=== PATIENT | female | born 1970 | race Hispanic/Latino ===

== ENCOUNTER 2018-07-20 17:34 | Emergency (ER) | payer BC ==
--- OUTSIDE RECORDS SUMMARY | 2018-07-20 17:36 | XMS REPORT | Continuity of Care Document ---
:1970 Author Organization Interface Problems Problem Status Onset Date Classification Date Comments Source Reported Medications Medication Details Route Status Patient Ordering Order Source Instructions Provider Date Allergies, Adverse Reactions, Alerts Substance Category Reaction Severity Reaction Status Date Comments Source type Reported Immunizations Immunization Date Given Site Status Last Updated Comments Source Results Order Results Value Reference Date Interpretation Comments Source Name Range Vital Signs Vital Sign Value Date Comments Source Encounters Location Location Encounter Encounter Reason Attending ADM DC Status Source Details Type Number For Provider Date Date Visit MNA Phone [id number] 12/08 12/10 [facility] [place] [facility] [place]2017 [facility] [id number] [place] 12/27 [facility] [place] [facility] Outpatient [id number] [place] 12/27 12/28 [facility] [place] [facility] [place] /2017 [facility] MNA Phone [id number] 12/31 01/02 [facility] [place] [facility] [place]2017 [facility] MNA Phone [id number] 01/03 01/05 [facility] [place] [facility] [place] /2017 [facility] Procedures Procedure Code Date Perfomer Comments Source
[2018-07-20] MEDS ORDERED: DIAZEPAM 5 MG TABLET ONE (18:26)
[2018-07-20] MEDS ORDERED: FENTANYL CITR 100 MCG/2 ML ONE (18:26)
--- NOTE | 2018-07-20 18:43 | EDPHYS ---
Physician Documentation [facility] Name: Denis Petit Age: 48 yrs Sex: Female : 1970 Arrival Date: 07/20/2018 Time: 17:35 Bed 13 Private MD: Reg Fernández ED Physician Yoni Vazquez HPI: 07/20 18:11 This 48 yrs old Female presents to ER via Ambulatory with complaints of Fall snw Injury. 18:11 Details of fall: The patient fell from an upright position, while standing. Onset: The snw symptoms/episode began/occurred suddenly, just prior to arrival. Associated injuries: The patient sustained left ankle, decreased range of motion, deformity, obvious fracture, painful injury, swelling. Severity of symptoms: At their worst the symptoms were severe. The patient has not experienced similar symptoms in the past. It is unknown whether or not the patient has recently seen a physician. 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 - Social history:: Smoking status: Patient uses tobacco products, smokes one-half pack cigarettes per day, Patient uses alcohol, occasionally. - Immunization history: Last tetanus immunization: unknown. - Ebola Screening: : Patient negative for fever greater than or equal to 101.5 degrees Fahrenheit, and additional compatible Ebola Virus Disease symptoms Patient denies exposure to infectious person Patient denies travel to an Ebola-affected area in the 21 days before illness onset. ROS: 18:10 Constitutional: Negative for fever, chills, and weight loss, Eyes: Negative for injury, snw pain, redness, and discharge, ENT: Negative for injury, pain, and discharge, Neck: Negative for injury, pain, and swelling, Cardiovascular: Negative for chest pain, palpitations, and edema, Respiratory: Negative for shortness of breath, cough, wheezing, and pleuritic chest pain, Abdomen/GI: Negative for abdominal pain, nausea, vomiting, diarrhea, and constipation, Back: Negative for injury and pain, : Negative for injury, bleeding, discharge, and swelling, Skin: Negative for injury, rash, and discoloration, Neuro: Negative for headache, weakness, numbness, tingling, and seizure, Psych: Negative for depression, anxiety, suicide ideation, homicidal ideation, and hallucinations, Allergy/Immunology: Negative for hives, rash, and allergies, Endocrine: Negative for neck swelling, polydipsia, polyuria, polyphagia, and marked weight changes. 18:10 MS/extremity: Positive for injury or acute deformity, decreased range of motion, deformity, pain, of the left ankle. Exam: 18:08 Constitutional: This is a well developed, well nourished patient who is awake, alert, snw and in no acute distress. Head/Face: Normocephalic, atraumatic. Eyes: Pupils equal round and reactive to light, extra-ocular motions intact. Lids and lashes normal. Conjunctiva and sclera are non-icteric and not injected. Cornea within normal limits. Periorbital areas with no swelling, redness, or edema. ENT: Nares patent. No nasal discharge, no septal abnormalities noted. Tympanic membranes are normal and external auditory canals are clear. Oropharynx with no redness, swelling, or masses, exudates, or evidence of obstruction, uvula midline. Mucous membranes moist. Neck: Trachea midline, no thyromegaly or masses palpated, and no cervical lymphadenopathy. Supple, full range of motion without nuchal rigidity, or vertebral point tenderness. No Meningismus. Chest/axilla: Normal chest wall appearance and motion. Nontender with no deformity. No lesions are appreciated. Cardiovascular: Regular rate and rhythm with a normal S1 and S2. No gallops, murmurs, or rubs. Normal PMI, no JVD. No pulse deficits. Respiratory: Lungs have equal breath sounds bilaterally, clear to auscultation and percussion. No rales, rhonchi or wheezes noted. No increased work of breathing, no retractions or nasal flaring. Abdomen/GI: Soft, non-tender, with normal bowel sounds. No distension or tympany. No guarding or rebound. No evidence of tenderness throughout. Back: No spinal tenderness. No costovertebral tenderness. Full range of motion. Skin: Warm, dry with normal turgor. Normal color with no rashes, no lesions, and no evidence of cellulitis. Neuro: Awake and alert, GCS 15, oriented to person, place, time, and situation. Cranial nerves II-XII grossly intact. Motor strength 5/5 in all extremities. Sensory grossly intact. Cerebellar exam normal. Normal gait. Psych: Awake, alert, with orientation to person, place and time. Behavior, mood, and affect are within normal limits. 18:08 Musculoskeletal/extremity: ROM: limited active range of motion due to pain, limited passive range of motion due to pain, Circulation is intact in all extremities. Sensation intact. edema, deformity of left ankle, possible trimalleolar fx. Vital Signs: 17:48 BP 141 / 95; Pulse 87; Resp 18; Temp 98.5(TE); Pulse Ox 98% on R/A; Weight 68.04 kg; hj Height 5 ft. 11 in. (180.34 cm); Pain 10/10; 19:14 BP 133 / 87; Pulse 75; Resp 14; Pulse Ox 99% ; bp 17:48 Body Mass Index 20.92 (68.04 kg, 180.34 cm) Jem Coma Score: 17:48 Eye Response: spontaneous(4). Verbal Response: oriented(5). Motor Response: obeys commands(6). Total: 15. Trauma Score (Adult): 17:48 Eye Response: spontaneous(1); Verbal Response: oriented(1); Motor Response: obeys hj commands(2); Systolic BP: > 89 mm Hg(4); Respiratory Rate: 10 to 29 per min(4); [place] Score: 15; Trauma Score: 12 MDM: 18:00 Patient medically screened. snw 18:40 Data reviewed: vital signs, nurses notes. Data interpreted: Pulse oximetry: on room air snw is 98 %. Interpretation: normal. Counseling: I had a detailed discussion with the patient and/or guardian regarding: the historical points, exam findings, and any diagnostic results supporting the discharge/admit diagnosis, the presence of at least one elevated blood pressure reading (>120/80) during this emergency department visit, radiology results, the need for outpatient follow up, to return to the emergency department if symptoms worsen or persist or if there are any questions or concerns that arise at home. Special discussion: I have referred the patient to see his PCP for further evaluation of high blood pressure. Based on the history and exam findings, there is no indication for further emergent testing or inpatient evaluation. I discussed with the patient/guardian the need to see the orthopedic surgeon for further evaluation of the symptoms. I discussed with the patient/guardian the need to see the primary care provider for further evaluation of the symptoms. 07/20 17:56 Order name: Ankle Left 3 View XRAY; Complete Time: 18:46 bp 07/20 18:10 Order name: Ice pack; Complete Time: 18:24 snw 07/20 18:10 Order name: Misc. Order: elevate LLE; Complete Time: 18:13 snw 07/20 18:40 Order name: Posterior Leg Splint: with stirrup splint and extra padding; Complete Time: snw 19:03 07/20 18:40 Order name: Crutches; Complete Time: 19:02 snw Administered Medications: 18:15 Drug: fentaNYL (PF) 50 mcg Route: IM; Site: left deltoid; bp 18:44 Follow up: Response: Pain is decreased bp 18:15 Drug: Valium 5 mg Route: PO; bp 18:44 Follow up: Response: Pain is decreased bp Disposition: 07/21 07:14 Co-signature as Attending Physician, Yoni Vazquez MD I agree with the assessment and ramiro plan of care. Disposition: 07/20/18 18:43 Discharged to Home. Impression: Fall on same level, unspecified, Trimalleolar fracture of lower leg. - Condition is Stable. - Discharge Instructions: Ankle Fracture, Cast or Splint Care, Adult, Crutch Use, RICE for Routine Care of Injuries. - Prescriptions for Tylenol- Codeine #3 300-30 mg Oral Tablet - take 2 tablets by ORAL route every 6 hours As needed; 20 tablet. Diclofenac Sodium 75 mg Oral Tablet Sustained Release - take 1 tablet by ORAL route 2 times per day; 30 tablet. orphenadrine citrate 100 mg Oral Tablet Sustained Release - take 1 tablet by ORAL route 2 times per day As needed; 20 tablet. - Work release form, Medication Reconciliation Form, Thank You Letter, Antibiotic Education, Prescription Opioid Use form. - Follow up: Emergency Department; When: As needed; Reason: Worsening of condition. Follow up: Sha Steve MD; When: 24 Hours; Reason: Recheck today's complaints, Continuance of care, Re-evaluation by your physician. Signatures: Dispatcher [facility] EDRI Yoni Vazquez MD MD cha Therrien, Shelly, FINANCIAL ANALYST-C FINANCIAL ANALYST-Csnw Dewayne Khan, RN RN Bashir Mckenna, RN RN bp Corrections: (The following items were deleted from the chart) 07/20 19:15 18:43 07/20/2018 18:43 Discharged to Home. Impression: Fall on same level, unspecified; bp Trimalleolar fracture of lower leg. Condition is Stable. Forms are Medication Reconciliation Form, Thank You Letter, Antibiotic Education, Prescription Opioid Use. Follow up: Emergency Department; When: As needed; Reason: Worsening of condition. Follow up: Dr. Sha Steve; When: 24 Hours; Reason: Recheck today's complaints, Continuance of care, Re-evaluation by your physician. snw
--- NOTE | 2018-07-20 18:43 | ER ---
Nurse's Notes [facility] Name: eDnis Petit Age: 48 yrs Sex: Female : 1970 Arrival Date: 07/20/2018 Time: 17:35 Bed 13 Private MD: Reg Fernández Diagnosis: Fall on same level, unspecified;Trimalleolar fracture of lower leg Presentation: 07/20 17:47 Presenting complaint: Patient states: i fed my dogs at home when i tripped and fell and hj hurt my L ankle, denies hitting head and LOC;. Transition of care: patient was not received from another setting of care. Onset of symptoms was July 20, 2018. Risk Assessment: Do you want to hurt yourself or someone else? Patient reports no desire to harm self or others. Initial Sepsis Screen: Does the patient meet any 2 criteria? No. Patient's initial sepsis screen is negative. Does the patient have a suspected source of infection? No. Patient's initial sepsis screen is negative. Care prior to arrival: None. 17:47 Method Of Arrival: Ambulatory 17:47 Acuity: DORCAS 4 17:51 Mechanism of Injury: Fall. Trauma event details: Injury occurred in the [place] [facility], Injury occurred: at home. Injury occurred: July 20, 2018. Triage Assessment: 17:50 General: Appears in no apparent distress. uncomfortable, Behavior is calm, cooperative, hj appropriate for age. Pain: Complains of pain in left medial ankle. 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 - Social history:: Smoking status: Patient uses tobacco products, smokes one-half pack cigarettes per day, Patient uses alcohol, occasionally. - Immunization history: Last tetanus immunization: unknown. - Ebola Screening: : Patient negative for fever greater than or equal to 101.5 degrees Fahrenheit, and additional compatible Ebola Virus Disease symptoms Patient denies exposure to infectious person Patient denies travel to an Ebola-affected area in the 21 days before illness onset. Screenin:48 Abuse screen: Denies threats or abuse. Denies injuries from another. Nutritional hj screening: No deficits noted. Tuberculosis screening: No symptoms or risk factors identified. Fall Risk None identified. Primary Survey: 17:51 A: Airway: patent, No supplemental oxygen in use on arrival. Oral cavity: clear, gag hj reflex present, Trachea midline. Breathing/Chest: Respiratory pattern: regular, Respiratory effort: spontaneous, unlabored, Breath sounds: clear, Chest inspection: symmetrical rise and fall of the chest. Circulation: Cardiac rhythm: sinus rhythm Heart tones present. Pulses: palpable right posterior tibial artery and left posterior tibial artery. Skin color: pink, Skin temperature: warm, dry. Disability Alert. 19:13 Reassessment Breathing/Chest Respiratory pattern Regular Respiratory effort Spontaneous bp Unlabored. Secondary Survey: 17:54 HEENT: No deficits noted. Gastrointestinal: No deficits noted. : No signs and/or bp symptoms were reported regarding the genitourinary system. Musculoskeletal: Circulation, motion, and sensation intact. Range of motion: intact in all extremities. Assessment: 17:50 General: Appears in no apparent distress. uncomfortable, Behavior is cooperative, bp appropriate for age, anxious. Pain: Complains of pain in left lateral ankle, left medial ankle and anterior aspect of left ankle. Neuro: Level of Consciousness is awake, alert, obeys commands, Oriented to person, place, time, situation, Appropriate for age. Cardiovascular: No deficits noted. Respiratory: Airway is patent Respiratory effort is even, unlabored, Respiratory pattern is symmetrical, agonal. GI: No signs and/or symptoms were reported involving the gastrointestinal system. EENT: No deficits noted. Derm: No deficits noted. Musculoskeletal: Circulation, motion, and sensation intact. Range of motion: intact in all extremities. 19:11 Reassessment: PT D/C HOME WITH FAMILY VIA CRUTCHES, DX WITH LEFT TRIMALLEOLAR FX. bp Vital Signs: 17:48 BP 141 / 95; Pulse 87; Resp 18; Temp 98.5(TE); Pulse Ox 98% on R/A; Weight 68.04 kg; hj Height 5 ft. 11 in. (180.34 cm); Pain 10/10; 19:14 BP 133 / 87; Pulse 75; Resp 14; Pulse Ox 99% ; bp 17:48 Body Mass Index 20.92 (68.04 kg, 180.34 cm) hj Jem Coma Score: 17:48 Eye Response: spontaneous(4). Verbal Response: oriented(5). Motor Response: obeys hj commands(6). Total: 15. Trauma Score (Adult): 17:48 Eye Response: spontaneous(1); Verbal Response: oriented(1); Motor Response: obeys hj commands(2); Systolic BP: > 89 mm Hg(4); Respiratory Rate: 10 to 29 per min(4); [place] Score: 15; Trauma Score: 12 ED Course: 17:35 Patient arrived in ED. mr 17:36 Reg Fernández MD is Private Physician. mr 17:48 Triage completed. hj 17:50 Arm band placed on right wrist. hj 17:53 Bashir Bonilla, VARUN is Primary Nurse. bp 18:00 Lennie Porter FNP-C is PHCP. snw 18:00 Yoni Vazquez MD is Attending Physician. snw 18:36 Ankle Left 3 View XRAY In Process Unspecified. EDMS 18:41 Sha Steve MD is Referral Physician. snw 19:01 Crutch training done. Orthoglass splint: Posterior short lleg splint applied on left mh5 leg. stirrup splint applied on. 19:03 Orthoglass splint:. mh5 19:11 Patient maintains SpO2 saturation greater than 95% on room air. bp 19:13 Patient has correct armband on for positive identification. Bed in low position. Call bp light in reach. Side rails up X2. Adult w/ patient. 19:13 No provider procedures requiring assistance completed. Patient did not have IV access bp during this emergency room visit. 19:13 Thermoregulation: warm blanket given to patient. bp Administered Medications: 18:15 Drug: fentaNYL (PF) 50 mcg Route: IM; Site: left deltoid; bp 18:44 Follow up: Response: Pain is decreased bp 18:15 Drug: Valium 5 mg Route: PO; bp 18:44 Follow up: Response: Pain is decreased bp Intake: 17:54 PO: 0ml; Total: 0ml. bp Output: 17:54 Urine: 0ml; Total: 0ml. bp Outcome: 18:43 Discharge ordered by . snw 19:12 Discharged to home with crutches, with family. bp 19:12 Condition: stable 19:12 Discharge instructions given to patient, Instructed on discharge instructions, follow up and referral plans. medication usage, crutch walking, Demonstrated understanding of instructions, follow-up care, crutch walking, splint care, Prescriptions given X 3. 19:13 Patient's length of stay was not longer than 2 hours. bp 19:15 Patient left the ED. bp Signatures: Dispatcher [employer] EDMS Lennie Porter, ONEYDAC GROCERY DEPARTMENT MANAGER-Saurabh Luis Love KhanDewayne, RN RN Renata Guevara [facility] Bashir Bonilla RN RN bp Corrections: (The following items were deleted from the chart) 17:51 17:48 Pulse 87bpm; Resp 18bpm; Pulse Ox 98% RA; Temp 98.5F Temporal; 68.04 kg; Height 5 hj ft. 11 in.; BMI: 20.9; Pain 10/10; hj
--- NOTE | 2018-07-20 18:44 | RAD REPORT ---
EXAM DESCRIPTION: RAD - Ankle Left 3 View -07/20/2018 6:38 pm CLINICAL HISTORY: Left ankle pain status post fall FINDINGS: Avulsion fracture of the medial malleolus is seen. An oblique mildly displaced fracture involves the lateral malleolus. No dislocation is noted
== END 2018-07-20 19:15 | disposition home or self-care (01) ==
LOC: ER 17:34
PROC: 2W3RX1Z Immobilization of Left Lower Leg using Splint (ICD-10-PCS; principal; 2018-07-20)
DX: S82.852A Displaced trimalleolar fracture of left lower leg, initial encounter for closed fracture (principal); W19.XXXA Unspecified fall, initial encounter; Y93.89 Activity, other specified; Y92.9 Unspecified place or not applicable; F17.210 Nicotine dependence, cigarettes, uncomplicated
CPT/HCPCS: 96372; 99284; J3010

== ENCOUNTER 2018-07-29 06:31 | Day surgery (SDC) | payer BC ==
[2018-07-25 17:36] LABS: Absolute Lymphocytes (CBC) 1.7 K/uL (0.7-4.9); Absolute Monocytes 0.5 K/uL (0.1-1.3); Absolute Neutrophil 3.8 K/uL (1.8-8.0); Eosinophils % 2.6 % (0-4.4); Hematocrit 43.2 % (36.0-45.0); Lymphocytes % 27.1 % (15.3-44.8); MCH 29.5 pg (27.0-35.0); MCV 87.8 fL (80-100); MPV 7.9 fL (7.6-11.3); Monocytes % 7.4 % (3.3-12.3); RBC Red Blood Cell Count 4.93 M/uL (3.86-4.86)
[2018-07-25 17:39] LABS: Protime INR 1.06
--- NOTE | 2018-07-25 17:40 | EKG ---
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
[2018-07-25 17:41] LABS: Potassium 3.9 mmol/L (3.5-5.1)
--- OUTSIDE RECORDS SUMMARY | 2018-07-29 06:33 | XMS REPORT | Continuity of Care Document ---
[...] For Provider Date Date Visit MNA Phone [id number] 12/08 12/10 [facility] [place] [facility] [place] /2017 [facility] [id number] [place] 12/[address] [facility] [place] [facility] Outpatient [id number] [place] 12/27 12/28 [facility] [place] [facility] [place] /2017 [facility] MNA Phone [id number] 12/31 01/02 [facility] [place] [facility] Message /2017 [facility] MNA Phone [id number] 01/03 01/05 [facility] [place] [facility] Message /2017 [facility] Procedures Procedure Code Date Perfomer Comments Source
--- OUTSIDE RECORDS SUMMARY | 2018-07-29 06:33 | XMS REPORT ---
:1970 Author Organization eClinical[employer] Care Team Providers Name Role Phone Sha Steve Provider Role Unavailable Allergies, Adverse Reactions, Alerts Substance Reaction Event Type N.K.D.A. Info Not Available Non Drug Allergy Problems Problem Type Condition Code Onset Dates Condition Status Assessment Closed bimalleolar fracture of S82.842A Active left ankle, initial encounter Assessment Acute left ankle pain M25.572 Active Medications Medication Code Code Instructions Start End Status Dosage System Date Date Diclofenac [facility] 50749616136 75 MG Oral Active TAKE 1 Sodium TABLET BY MOUTH TWICE A DAY Orphenadrine ND 45189163558 100 MG Oral Active TAKE 1 Citrate ER TABLET BY MOUTH TWICE A DAY NEEDED [place] 44338764019 7.5-325 MG Jul 25, Active 1 tablet Orally every 6 2018 as needed hrs Acetaminophen-Co ND 84013663392 300-30 MG Oral Active (Schedule deine #3 III Drug) TAKE 2 TABLETS BY MOUTH EVERY 6 HOURS NEEDED FOR PAIN Results No Known Results Summary Purpose eClinicalWorks Submission
[2018-07-29] MEDS ORDERED: FENTANYL CITR 100 MCG/2 ML ONE ×2 (07:01→08:41)
[2018-07-29] MEDS ORDERED: LIDOCAINE 2% MPF 5 ML VIAL ONE (07:01)
[2018-07-29] MEDS ORDERED: MIDAZOLAM HCL 2 MG/2 ML INJ ONE (07:01)
[2018-07-29] MEDS ORDERED: PROPOFOL 200 MG/20 ML VIAL IV ONE (07:01)
[2018-07-29] MEDS ORDERED: CEFAZOLIN/SWI 1gm 1 GM/10 ML SYR ONE (07:06)
[2018-07-29] MEDS ORDERED: Ringers Lactate 1,000 ML IV ONE ×2 (07:06→09:24)
[2018-07-29] MEDS ORDERED: MEPERIDINE HCL 25 MG/0.5 ML ONE (09:22)
[2018-07-29] MEDS ORDERED: KETOROLAC 30 MG/ML INJ ONE (09:23)
--- NOTE | 2018-07-29 09:42 | P.BOP ---
Preoperative diagnosis: left bimalleolar ankle fracture Postoperative diagnosis: same Primary procedure: ORIF left bimalleolar ankle fracture Medical Cash Poster: NONE,NONE Estimated blood loss: <10 cc Specimen: none Findings: see dictation Anesthesia: General Complications: None Implants: 6 hole tubular plate, 2-4.0 cancellous screws Fluids & blood products: per anesthesia; TT: 84 mins @ 250 mmHg Transferred to: Recovery Room Condition: Good
--- NOTE | 2018-07-29 09:51 | RAD REPORT ---
EXAM DESCRIPTION: RAD - Ankle Left 2 View - 07/29/2018 9:25 am FINDINGS: There were 18 portable C-arm views obtained and submitted during fluoroscopic assisted cheri cement of fracture fixation hardware. Fluoro time was 1.0 minutes. No suspicious or unexpected finding.
[2018-07-29] MEDS: MEPERIDINE HCL 50 MG/ML AMP ONE ×6 (10:00→10:34)
--- NOTE | 2018-07-29 10:17 | RAD REPORT ---
EXAM DESCRIPTION: RAD - Ankle Left 2 View - 07/29/2018 9:49 am CLINICAL HISTORY: s/p ORIF L bimalleolar ankle fx COMPARISON: Ankle Left 2 View dated 07/29/2018 FINDINGS: Lateral fibular sideplate with multiple screws are seen. Two screws are present in the med ial malleolus. Bone detail is obscured by a cast.
[2018-07-29] MEDS ORDERED: HYDROCODONE/APAP 7.5/325 MG TAB ONE (11:08)
--- NOTE | 2018-07-30 | OP ---
Date of Procedure: 07/29/2018 Surgeon: Sha Steve MD Preoperative Diagnosis: Left bimalleolar ankle fracture. Postoperative Diagnosis: Left bimalleolar ankle fracture. Procedure Performed: Open reduction and internal fixation, left bimalleolar ankle fracture. Anesthesia: General LMA. Fluids: Per Anesthesia record. Estimated Blood Loss: Less than 10 cc. Tourniquet Time: 84 minutes at 250 mmHg. Implants: A 6 hole tubular plate as well as two 4.0 cannulated screws. Indication For Procedure: Denis is a 48-year-old female, who presented to my clinic after sustain ing an injury to her left ankle, which demonstrated a displaced bimalleolar ankle fracture. Discusse d with the patient at length risks and benefits associated with operative and nonoperative treatment. Given her unstable ankle fracture pattern, I recommended operative treatment. She expressed unders tanding and elected to proceed with operative treatment. Description Of Procedure: After informed consent was obtained, the patient was identified in the pre operative holding area. The left lower extremity was marked. The patient was then brought back to [facility] operating room, transferred to the operating table in a supine fashion, placed under general LMA a nesthesia. The left lower extremity was then prepped and draped in usual sterile fashion. A time-ou t was initiated. The correct patient and procedure were confirmed and identified. The patient did r eceive her preoperative prophylactic antibiotics. The left lower extremity was then exsanguinated an d tourniquet was inflated to 250 mmHg. Attention was first taken to the distal fibula where approxim ately a 10 cm longitudinal incision was made centered over the distal fibula. Dissection was then ta oneil down to the distal fibula using Metzenbaum. The fracture was identified. It was held reduced an d reduction was verified using fluoroscopy. It was held reduced with a 2-point reduction clamp. A s araceli lag screw was placed perpendicular to the fracture site by overdrilling the proximal cortex wit h a 3.5 drill bit, in the distal cortex with a 2.5 drill bit using standard AO technique. A single l ag screw with 3.5 cortical screw was placed in lag fashion. There was compression noted at the fract ure site. The reduction clamp was then removed and the fracture was held reduced. Next, a 6 hole tu bular plate was placed over the lateral aspect of the distal fibula. Fluoroscopy was used to ensure proper placement of the plate. Three screws were placed proximal to the fracture and these were 3.5 cortical screws in bicortical fashion as well as two 4.0 cancellous screws placed distally in unicort ical fashion. Fluoroscopy was used to ensure overall good placement of the plate and maintenance red uction and this was confirmed. The wound was then irrigated thoroughly with normal saline and the paul bcutaneous tissue was approximated using a 2-0 Vicryl. This was performed after performing a Cotton test by placing gentle stress on the distal fibula and it indeed demonstrated that the syndesmosis wa s intact. Next, attention was taken to the medial malleolus where approximately a 5 cm incision was made centered over the tip of the medial malleolus. Dissection was then taken down to the fracture s ite. The fracture was held reduced with a 2-point reduction clamp. Two K-wires were placed in a ret rograde fashion perpendicular to the fracture site. Proper placement of the pins was confirmed using fluoroscopy in both the AP and lateral views. The outer cortex was then drilled with a drill bit an d two 4.0 cannulated screws were placed. There was good reduction of the fracture. Compression was noted at the fracture site. K-wires were removed. Final x-rays were taken and there was overall goo d alignment of the fracture and reduction. Wounds were then irrigated thoroughly with normal saline. Subcutaneous tissue was approximated using a 2-0 Vicryl. Skin was approximated using a 3-0 nylon. Sterile dressings were applied. The patient was placed in a stirrup splint. Tourniquet was let tan n. She was awakened and transferred to the PACU in stable condition. Postoperative Plan: She will be nonweightbearing of her left lower extremity. She will follow up in 2 weeks for wound check and suture removal. I will then transition her to a CAM boot. JAK/MICHAELL Voice ID: [id number] Report ID: [id number]
== END 2018-07-29 11:42 | disposition home or self-care (01) ==
LOC: OR 06:31
PROVIDERS: ATTEND Orthopaedic Surgery Sports Medicine
PROC: 0QSH04Z Reposition Left Tibia with Internal Fixation Device, Open Approach (ICD-10-PCS; 2018-07-29)
PROC: 0QSK04Z Reposition Left Fibula with Internal Fixation Device, Open Approach (ICD-10-PCS; principal; 2018-07-29 07:30)
DX: S82.842A Displaced bimalleolar fracture of left lower leg, initial encounter for closed fracture (principal); Z91.010 Allergy to peanuts; Z91.018 Allergy to other foods
CPT/HCPCS: 36415; 80048; 85025; 85610; 85730; 93005; J0690; J2175; J2250; J3010

== ENCOUNTER 2018-12-16 06:14 | Day surgery (SDC) | payer BC ==
[2018-12-09 12:09] LABS: Absolute Monocytes 0.5 K/uL (0.1-1.3); Basophils % 1.1 % (0-1.3); Hematocrit 44.2 % (36.0-45.0); Lymphocytes % 30.4 % (15.3-44.8); MPV 8.2 fL (7.6-11.3); Monocytes % 7.2 % (3.3-12.3); RBC Red Blood Cell Count 4.98 M/uL (3.86-4.86)
[2018-12-09 12:19] LABS: Protime INR 1.04
[2018-12-09 12:29] LABS: Potassium 3.6 mmol/L (3.5-5.1)
--- NOTE | 2018-12-09 13:52 | EKG ---
Test Date: 2018-12-09 Test Time: 10:41:49 [employer] Flake Miller: MIGUEL MEASUREMENT RESULTS: Intervals: Rate: 69 MA: 156 QRSD: 84 QT: 388 QTc: 415 [place]: P: 39 MA: 156 QRS: -16 T: 9 INTERPRETIVE STATEMENTS: Normal sinus rhythm Normal ECG Compared to ECG 07/25/2018 16:31:46 No significant changes Electronically Signed On 12-09-18 13:51:16 PASTA MAKER by Jose Ramon Delatorre
--- OUTSIDE RECORDS SUMMARY | 2018-12-16 06:16 | XMS REPORT ---
:1970 Author Organization [employer] Care Team Providers Name Role Phone Sha Steve Provider Role Unavailable Allergies No Known Allergies Problems Problem Type Condition Code Onset Dates Condition Status Assessment Closed displaced bimalleolar S82.842D Active fracture of left lower leg with routine healing Medications No Known Medications Results Name Result Date Reference Range Unit Abnormality Flag Physical Therapy Summary Purpose eClinicalWorks Submission
--- OUTSIDE RECORDS SUMMARY | 2018-12-16 06:16 | XMS REPORT ---
[...] End Status Dosage System Date Date Diclofenac [facility] 70549893106 75 MG Oral Active TAKE 1 Sodium TABLET BY MOUTH TWICE A DAY Orphenadrine ND 62963826989 100 MG Oral Active TAKE 1 Citrate ER TABLET BY MOUTH TWICE A DAY NEEDED [place] ND 14450503071 7.5-325 MG Jul 25, Active 1 tablet Orally every 6 2018 as needed hrs Acetaminophen-Co ND 92352779942 300-30 MG Oral Active (Schedule deine #3 III Drug) TAKE 2 TABLETS BY MOUTH EVERY 6 HOURS NEEDED FOR PAIN Results No Known Results Summary Purpose eClinicalWorks Submission
--- OUTSIDE RECORDS SUMMARY | 2018-12-16 06:16 | XMS REPORT ---
:1970 Author Organization [employer]ClinicalWorks Care Team Providers Name Role Sha Garcia Provider Role Unavailable Allergies, Adverse Reactions, Alerts Substance Reaction Event Type N.K.D.A. Info Not Available Non Drug Allergy Problems Problem Type Condition Code Onset Dates Condition Status Assessment Pain of joint of left ankle and M25.572 Active foot Assessment Closed displaced bimalleolar S82.842D Active fracture of left lower leg with routine healing Medications No Known Medications Results No Known Results Summary Purpose eClinicalWorks Submission
--- OUTSIDE RECORDS SUMMARY | 2018-12-16 06:16 | XMS REPORT | Continuity of Care Document ---
[...] For Provider Date Date Visit [facility] Phone [id number] 12/08 12[place]10 [facility] [place]2017 [facility] [place] [id number] [place] 12/[address] [facility] [place] [facility] [place]patient [id number] [place] 12/27 12/28 [facility] [place]2017 [facility] MNA Phone [id number] 12/31 01/02 [facility] [place]2017 [facility] Phone [phone] 01/03 01/05 [facility] [place]2017 [facility] Procedures Procedure Code Date Perfomer Comments Source
--- OUTSIDE RECORDS SUMMARY | 2018-12-16 06:16 | XMS REPORT ---
:1970 Author Organization eClinicalWorks Care Team Providers Name Role Phone Sha Steve Provider Role Unavailable Allergies No Known Allergies Problems No Known Problems Medications No Known Medications Results No Known Results Summary Purpose eClinicalWorks Submission
--- OUTSIDE RECORDS SUMMARY | 2018-12-16 06:17 | XMS REPORT ---
:1970 Author Organization eClinicalWorks Care Team Providers Name Role Phone Power Sha Provider Role Unavailable Allergies, Adverse Reactions, Alerts Substance Reaction Event Type N.K.D.A. Info Not Available Non Drug Allergy Problems Problem Type Condition Code Onset Dates Condition Status Assessment Pain of joint of left ankle and M25.572 Active foot Assessment Closed displaced bimalleolar S82.842K Active fracture of left ankle with nonunion, subsequent encounter Medications Medication Code Code Instructions Start End Status Dosage System Date Date Montelukast [facility] 83693110113 10 MG Oral Active TAKE 1 TABLET Sodium BY MOUTH EVERY EVENING ProAir HFA [facility] 76748332508 108 (90 Base) Active TAKE 2 PUFFS MCG/ACT BY MOUTH EVERY Inhalation 4 HOURS NEEDED Robaxin [facility] 62530173338 500 MG Orally Nov 24Nov Active 1 tablet every 8 hrs 2018 Topiramate ND 85408609366 50 MG Oral Active (Prior Auth: Rx Ref#:[id number] 872) Fluticasone ND 81917098365 50 MCG/ACT Active USE 2 SPRAYS Propionate Nasal INTRANASALLY DAILY IN EACH NOSTRIL Results Name Result Date Reference Range Unit Abnormality Flag CT LEFT ANKLE WO CONTRAST CBC with Automated Diff ----Basophils % 0.8 87100046 0-1.3 % ----Eosinophils % 3.7 51128733 0-4.4 % ----Absolute Lymphocytes 2.5 71523517 0.7-4.9 (CBC) ----Absolute Neutrophil 4.5 63760962 1.8-8.0 ----Red Cell Distribution 13.9 05952635 12.1-15.2 % Width ----Absolute Eosinophils 0.3 74655788 0-0.5 ----Platelets 292 12296439 152-406 ----Absolute Monocytes 0.7 51554126 0.1-1.3 ----MCHC 33.8 56827682 32.0-36.0 g/dL ----MCH 30.1 22827990 27.0-35.0 pg ----MCV 89.3 86606402 80-100 fL ----Neutrophils % 55.1 11546083 41.7-73.7 % ----MPV 7.0 68359044 7.6-11.3 fL L ----Monocytes % 9.0 81459092 3.3-12.3 % ----Lymphocytes % 31.4 71271156 15.3-44.8 % ----Absolute Basophils 0.1 76816020 0-0.5 ----White Blood Count 8.1 94782261 4.3-10.9 ----RBC Red Blood Cell Count 4.70 21270693 3.86-4.86 M/ul ----Hemoglobin 14.2 98231546 12.0-15.0 g/dL ----Hematocrit 42.0 17841828 36.0-45.0 % Basic Metabolic Panel ----Creatinine 0.66 16036378 0.55-1.3 mg/dL ----BUN Blood Urea Nitrogen 12 20181124 7-18 mg/dL ----Calcium Level 8.6 66910246 8.5-10.1 mg/dL ----Glomerular Filtration > 90 48863358 =/>90 Rate ----Bicarbonate 26 42348934 21-32 mmol/L ----Glucose Level 89 87459157 74-106 mg/dL ----Potassium 3.7 40765673 3.5-5.1 mmol/L ----Chloride Level 111 05099691 98-107 mmol/L H ----Sodium Level 142 43054644 136-145 mmol/L Summary Purpose eClinicalWorks Submission
--- OUTSIDE RECORDS SUMMARY | 2018-12-16 06:17 | XMS REPORT ---
[...] Start End Status Dosage System Date Date Robaxin [facility] 50120889450 500 MG Orally Active 1 tablet every 8 hrs Topiramate [facility] 27998393176 50 MG Oral Active (Prior Auth: Rx Ref#:[id number] 872) Montelukast ND 88801332473 10 MG Oral Active TAKE 1 TABLET Sodium BY MOUTH EVERY EVENING ProAir HFA [facility] 96249245304 108 (90 Base) Active TAKE 2 PUFFS MCG/ACT BY MOUTH EVERY Inhalation 4 HOURS NEEDED Fluticasone ND 43254099113 50 MCG/ACT Active USE 2 SPRAYS Propionate Nasal INTRANASALLY DAILY IN EACH NOSTRIL Results No Known Results Summary Purpose eClinicalWorks Submission
[2018-12-16 06:29] LABS: Specific Gravity 1.025 (1.005-1.030)
[2018-12-16] MEDS ORDERED: Ringers Lactate 1,000 ML IV ONE ×2 (06:32→10:58)
[2018-12-16] MEDS ORDERED: CEFAZOLIN/SWI 1gm 1 GM/10 ML SYR ONE (06:32)
[2018-12-16] MEDS ORDERED: LIDOCAINE 1% MPF 5 ML VIAL ONE (06:44)
[2018-12-16] MEDS ORDERED: PROPOFOL 200 MG/20 ML VIAL IV ONE (07:12)
[2018-12-16] MEDS ORDERED: LIDOCAINE 2% MPF 5 ML VIAL ONE (07:13)
[2018-12-16] MEDS ORDERED: MIDAZOLAM HCL 2 MG/2 ML INJ ONE (07:13)
[2018-12-16] MEDS ORDERED: FENTANYL CITR 100 MCG/2 ML ONE ×2 (07:13→08:50)
[2018-12-16] MEDS ORDERED: ONDANSETRON 4 MG/2 ML VIAL ONE ×2 (07:14→10:10)
[2018-12-16] MEDS: BUPIVACAINE 0.5% PF 10 ML VIAL ONE ×2 (08:19→08:20)
--- NOTE | 2018-12-16 09:25 | RAD REPORT ---
EXAM DESCRIPTION: RAD - Ankle Left 2 View - 12/16/2018 9:09 am FINDINGS: There were 6 portable C-arm views obtained during revision of fracture fixation hardware. Fluoro time was 0.3 minutes. No suspicious or unexpected finding.
--- NOTE | 2018-12-16 09:40 | P.BOP ---
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
[2018-12-16] MEDS: HYDROMORPHONE HCL 2 MG/ML inj ONE ×4 (09:55→10:15)
--- NOTE | 2018-12-16 10:10 | RAD REPORT ---
EXAM DESCRIPTION: RAD - Ankle Left 2 View - 12/16/2018 9:59 am CLINICAL HISTORY: POST-OP Ankle fracture COMPARISON: Ankle Left 2 View dated 12/16/2018 FINDINGS: Orthopedic hardware is seen along the mediolateral aspects of the ankle. No unexpected fin ding. Prominent calcaneal spurs are seen. Bone detail is obscured by cast material.
[2018-12-16] MEDS ORDERED: PROMETHAZINE 25 MG/ML VIAL ONE (10:52)
[2018-12-16] MEDS ORDERED: HYDROCODONE/APAP 7.5/325 MG TAB ONE (11:32)
--- NOTE | 2018-12-19 08:22 | OP ---
Date of Procedure: 12/16/2018 Surgeon: Sha Steve MD Preoperative Diagnosis: Nonunion, left medial malleolus, with retained hardware. Postoperative Diagnosis: Nonunion, left medial malleolus, with retained hardware. Procedures Performed: 1. Removal of hardware, left medial malleolus. 2. Revision of open reduction and internal fixation, left medial malleolus, with local autologous bone grafting. Anesthesia: General LMA. Fluids: Per Anesthesia record. Estimated Blood Loss: Less than 5 cc. Implants: 2 hole Acumed medial malleolus hook plate. Complications: None. Tourniquet Time: 80 minutes at 250 mmHg. Indication For Procedure: with left medial malleolar ankle fracture. She underwent open reduction and internal fixation with plate last year for lateral malleolus continued to have pain. CT scan demonstrated nonunion at the medial malleolus. I discussed with the patient at length risks and benefits associated with operative and nonoperative treatment. She expressed understanding and elected to proceed with operative treatment. Preoperative labs did demonstrate a vitamin D deficiency with no elevation of CRP or sed rate. Description Of Procedure: After informed consent was obtained, the patient was identified in the preoperative holding area. The left lower extremity was marked. The patient was then brought back to the operative room, transferred to the operative table in supine fashion, and placed under general LMA anesthesia. The left lower extremity was then prepped and draped in usual sterile fashion. A timeout was initiated. Correct patient and procedure were confirmed and identified. The patient did receive a preoperative prophylactic antibiotic. The left lower extremity was exsanguinated using an Esmarch. The tourniquet was inflated to 250 mmHg. Approximately a 7-cm longitudinal incision made centered over the prior incision over the medial malleolus. Dissection was taken down to the tip of the medial malleolus where the 2 cannulated screws were removed without confrontation. The nonunion site was then marked using a [place] elevator and using fluoroscopy. The fracture site was then curetted to expose bleeding bone. Once this was complete from anterior to posterior, a Acumed 2-hole foot plate was placed in the tip of the medial malleolus. There was noted to be some at the fracture site. A single proximal screw was then placed using the 2.7 cortical screw in bicortical fashion, followed by a placement of a locking screw in the distal segment. There was good overall fixation of the plate onto the bone as well as compression of the fracture site. Given the history of nonunion, we then proceeded with local bone grafting drill was then placed just proximal and anterior to the plate to create a corticotomy. A curette was then used to obtain bone grafting from the distal tibial metaphysis. Then, the bone graft was then placed locally at the fracture site using a [place] elevator. The wound was then approximated subcutaneously using 2-0 Vicryl. Skin was approximated using 3-0 nylon. Sterile dressings were applied. The patient was placed in a posterior stirrup splint. Tourniquet was let down. The patient was awakened and transferred to PACU in stable condition. Postoperative Plan: She will be nonweightbearing for a total of 8 weeks. She will return to clinic in 2 weeks for wound check and suture removal, and we will continue to monitor. JAK/GARCÍA Voice ID: [id number] Report ID: [id number] CAL
== END 2018-12-16 11:51 | disposition home or self-care (01) ==
LOC: OR 06:14
PROVIDERS: ATTEND Orthopaedic Surgery Sports Medicine
PROC: 0QUH07Z Supplement Left Tibia with Autologous Tissue Substitute, Open Approach (ICD-10-PCS; 2018-12-16)
PROC: 0QSH04Z Reposition Left Tibia with Internal Fixation Device, Open Approach (ICD-10-PCS; principal; 2018-12-16 07:30)
DX: S82.52XK Displaced fracture of medial malleolus of left tibia, subsequent encounter for closed fracture with nonunion (principal); F17.210 Nicotine dependence, cigarettes, uncomplicated; Z91.018 Allergy to other foods; Z91.010 Allergy to peanuts; Z82.49 Family history of ischemic heart disease and other diseases of the circulatory system; Z83.3 Family history of diabetes mellitus; J45.909 Unspecified asthma, uncomplicated
CPT/HCPCS: 36415; 80048; 81025; 85025; 85610; 85730; 93005; J0690; J1170; J2250; J2405; J2550; J2704; J3010

== ENCOUNTER 2020-04-01 18:49 | Emergency (ER) | payer OTHER ==
--- OUTSIDE RECORDS SUMMARY | 2020-04-01 20:21 | XMS REPORT | Continuity of Care Document ---
:1970 Author Organization [employer] Care Team Providers Name Role Phone [employer] Unavailable Un available Problems No Data Provided for This Section Medications No Data Provided for This Section Allergies, Adverse Reactions, Alerts No Known Medication Allergies Immunizations No Data Provided for This Section Results No Data Provided for This Section Pathology Reports No Data Provided for This Section Diagnostic Reports No Data Provided for This Section Consultation Notes No Data Provided for This Section Discharge Summaries No Data Provided for This Section History and Physicals No Data Provided for This Section Vital Signs No Data Provided for This Section Encounters Location Location Encounter Encounter Reason Attending ADM VT Stat us Source Details Type Number For Provider Date Date Visit MNA Phone [phone] 12/08 12/10 [facility] [place] Neurology Message /2017 [facility] Outpatient [id number] [place] [facility] [place] [facility] Outpatient [id number] [place] 12/27 12/28 [facility] [place] /2017 [facility] MNA Phone [id number] 12/31 01/02 [facility] Neurology Message /2017 [facility] MNA Phone [phone] 01/03 01/05 [facility] [place] Neurology Message /[address] [facility] [place] Procedures No Data Provided for This Section Assessment and Plan No Data Provided for This Section Plan of Care No Data Provided for This Section Social History Social History Date Source No data available for this 01/05/2018 [facility] Neuro section Family History No Data Provided for This Section Advance Directives No Data Provided for This Section Functional Status No Data Provided for This Section
--- OUTSIDE RECORDS SUMMARY | 2020-04-01 20:22 | XMS REPORT | Continuity of Care Document ---
:1970 Author Organization [facility] t Address [address] [place] [address] Care Team Providers Name Role Phone Silvia Day Attending Clinician Problems This patient has no known problems. Allergies, Adverse Reactions, Alerts This patient has no known allergies or adverse reactions. Social History Social Habit Start Date Stop Date Quantity Comments Source Social History 2018-01-05 2018-01-05 [facility] thiago 04:59:59 04:59:59 Medications Ordered Filled Start Stop Current Ordering Indication Dosage Frequency Signature Comments Components Source Medication Medication Date Date Medication? Clinician (SIG) Name Name Isaac Gray 2019- No Sha [address] [facility] 6-27 07-27 [facility] l [facility] ent Clinics [facility] Yes Sha TAKE [address] [facility] Sodium Sodium Steve TABLET BY [facility] - MOUTH [facility] EVERY l EVENING Outpati ent Clinics ProAir HFA ProAir HFA Yes Sha TAKE [address] [facility] Steve PUFFS BY [facility] - MOUTH [facility] EVERY 4 l HOURS Outpati NEEDED ent Clinics Fluticasone Fluticasone Yes Sha USE [address] [facility] Propionate Propionate Steve SPRAYS L ukes - INTRANASAL Memoria LY DAILY l IN EACH Outpati NOSTRIL ent Clinics Procedures This patient has no known procedures. Encounters Start End Encounter Admission Attending Care Care Encounter Source Date/Time Date/Time Type Type Clinicians Facility Department ID 2019-07-03 2019-07-03 Outpatient Vick Hebert [id number] [facility] 08:29:00 08:29[facility] Clinics 2019-06-08 2019-06-08 Outpatient Vick Hebert [id number] [facility] 08[facility]26:00 08:26:00 [facility] 2019-04-13 2019-04-13 [facility] [id number] [facility] 08[facility]00:00 08:00:00 [facility] 2019-03-02 2019-03-02 [facility] [id number] [facility] 15:25:00 15:25:00 [facility] 2019-02-02 2019-02-02 [facility] [id number] [facility] 08:00:00 08:00:00 [facility] 2019-01-03 2019-01-03 [facility] [id number] [facility] 08[facility]00:00 08:00:00 [facility] 2018-11-30 2018-11-30 [facility] [id number] [facility] 08[facility]00:00 08:00:00 [facility] 2018-11-29 2018-11-29 [facility] [id number] [facility] 08:51:00 08:51:00 [facility] 2018-11-24 2018-11-24 [facility] [id number] [facility] 14:01:00 14:01:00 [facility] 2018-11-24 2018-11-24 [facility] [id number] [facility] 10:00:00 10:00:00 [facility] 2018-11-21 2018-11-21 [facility] [id number] [facility] 15:00:00 15:00:00 [facility] 2018-10-13 2018-10-13 [facility] [id number] [facility] 10:30:00 10:30:00 [facility] 2018-08-03 2018-08-03 Outpatient Vick Hickmant [id number] [facility] 10:56:00 10:56:00 [facility] 2018-07-25 2018-07-25 Outpatient Vick Hickmant [id number] [facility] 09:45:00 09:45:00 [facility] 2018-01-03 2018-01-04 Outpatient [facility]ER M[facility] [id number] 15:09:00 23:59:59 02 2017-12-31 2018-01-01 Outpatient MHMISCHER MHMISCHER [id number] 15:03:00 23:59:59 01 2017-12-27 2017-12-27 Outpatient Barb, M[facility]ISCHER MHMISCHER [id number] 14:30:00 23:59:59 Chago S 00 2017-12-08 2017-12-09 Outpatient MHMISCHER MHMISCHER [id number] 16:14:00 23:59:59 00 Results This patient has no known results.
[2020-04-01 21:32] LABS: Absolute Lymphocytes (CBC) 1.8 K/uL (0.7-4.9); Hematocrit 46.8 % (36.0-45.0); Lymphocytes % 25.6 % (15.3-44.8); MPV 7.3 fL (7.6-11.3); RBC Red Blood Cell Count 5.26 M/uL (3.86-4.86)
[2020-04-01 21:42] LABS: ALT/SGPT 45 U/L (12-78); AST/SGOT 30 U/L (15-37); Albumin 4.1 g/dL (3.4-5.0); Alkaline Phosphatase 123 U/L (45-117); BUN Blood Urea Nitrogen 17 mg/dL (7-18); Bicarbonate 23 mmol/L (21-32); Bilirubin Direct < 0.1 mg/dL (0-0.2); Bilirubin Total 0.3 mg/dL (0.2-1.0); Glucose Level 117 mg/dL (74-106); Lipase 232 U/L (73-393); Potassium 3.6 mmol/L (3.5-5.1); Protein, Total 7.4 g/dL (6.4-8.2); Sodium Level 140 mmol/L (136-145)
--- NOTE | 2020-04-02 00:35 | EDPHYS ---
Physician Documentation [facility] Name: Denis Petit Age: 49 yrs Sex: Female : 1970 Arrival Date: 04/01/2020 Time: 20:10 Bed 20 Private MD: ED Physician Rob Christensen HPI: 04/01 22:02 This 49 yrs old Female presents to ER via Ambulatory with complaints of tw4 Abdominal Pain. 22:02 The patient presents with abdominal pain. Onset: The symptoms/episode began/occurred tw4 today. The symptoms radiate to left back. Associated signs and symptoms: none. The symptoms are described as dull. Modifying factors: The symptoms are alleviated by nothing, the symptoms are aggravated by nothing. The patient has not experienced similar symptoms in the past. 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 - Social history:: Smoking status: Patient denies any tobacco usage or history of. ROS: 22:02 Constitutional: Negative for fever, chills, and weight loss, Eyes: Negative for injury, tw4 pain, redness, and discharge, Cardiovascular: Negative for chest pain, palpitations, and edema, Respiratory: Negative for shortness of breath, cough, wheezing, and pleuritic chest pain, Back: Negative for injury and pain, MS/Extremity: Negative for injury and deformity, Skin: Negative for injury, rash, and discoloration, Neuro: Negative for headache, weakness, numbness, tingling, and seizure. 22:02 Abdomen/GI: Positive for abdominal pain, nausea, Negative for nausea and vomiting, nausea, vomiting, and diarrhea, diarrhea, constipation, abdominal cramps, abdominal distension, anorexia, dysphagia, hematemesis, black/tarry stool, rectal pain. Exam: 22:02 Constitutional: This is a well developed, well nourished patient who is awake, alert, tw4 and in no acute distress. Head/Face: Normocephalic, atraumatic. Chest/axilla: Normal chest wall appearance and motion. Nontender with no deformity. No lesions are appreciated. Cardiovascular: Regular rate and rhythm with a normal S1 and S2. No gallops, murmurs, or rubs. Normal PMI, no JVD. No pulse deficits. Respiratory: Lungs have equal breath sounds bilaterally, clear to auscultation and percussion. No rales, rhonchi or wheezes noted. No increased work of breathing, no retractions or nasal flaring. MS/ Extremity: Pulses equal, no cyanosis. Neurovascular intact. Full, normal range of motion. Neuro: Awake and alert, GCS 15, oriented to person, place, time, and situation. Cranial nerves II-XII grossly intact. Motor strength 5/5 in all extremities. Sensory grossly intact. Cerebellar exam normal. Normal gait. 22:02 Abdomen/GI: Inspection: abdomen appears normal, Bowel sounds: normal, Palpation: moderate abdominal tenderness, in the left upper quadrant. Vital Signs: 20:17 BP 146 / 90; Pulse 82; Resp 19; Temp 97.6; Pulse Ox 98% on R/A; Weight 70.31 kg; Height vc 4 ft. 11 in. (149.86 cm); Pain 10/10; 21:45 BP 142 / 75; Pulse 68; Resp 18; Pulse Ox 100% ; wh 23:00 BP 125 / 74; Pulse 66; Resp 18; Pulse Ox 100% on R/A; wh 04/02 00:30 BP 129 / 56; Pulse 61; Resp 18; Pulse Ox 99% on R/A; 04/01 20:17 Body Mass Index 31.31 (70.31 kg, 149.86 cm) vc MDM: 04/01 20:57 Patient medically screened. tw4 04/01 20:27 Order name: Basic Metabolic Panel; Complete Time: 21:47 tw4 04/01 21:47 Interpretation: Normal except: CL 110; GFR 71; GLUC 117. tw4 06/15 20:27 Order name: CBC with Diff; Complete Time: 21:47 [facility] 04/01 21:47 Interpretation: Normal except: RBC 5.26; HGB 15.7; HCT 46.8; MPV 7.3. [facility] 04/01 20:27 Order name: Hepatic Function; Complete Time: 21:47 [facility] 04/01 21:47 Interpretation: Normal except: ALK 123. [facility] 04/01 20:27 Order name: Lipase; Complete Time: 21:47 [facility] 04/01 21:47 Interpretation: Within normal limits: LIP 232. 04/01 23:21 Order name: Troponin (emerg Dept Use Only); Complete Time: 00:36 [facility] 04/02 00:36 Interpretation: Within normal limits: TROPED < 0.02. 04/01 20:27 Order name: IV Saline Lock; Complete Time: 21:12 [facility] 04/01 20:27 Order name: Labs collected and sent; Complete Time: 21:12 [facility] 04/01 21:12 Order name: EKG - Nurse/Tech; Complete Time: 21:12 04/01 21:47 Order name: CT Abd/Pelvis - IV Contrast Only tw4 EC/16 00:28 Rate is 65 beats/min. Rhythm is regular. QRS Harper is Normal. NC interval is normal. QRS tw4 interval is normal. QT interval is normal. No Q waves. T waves are Normal. No ST changes noted. Clinical impression: Normal ECG. Interpreted by me. Reviewed by me. Administered Medications: 00:41 Drug: GI Cocktail without - (Maalox Suspension 30 ml, Lidocaine Liquid 2 % 15 wh ml) Route: PO; 00:52 Follow up: Response: No adverse reaction Disposition: 04/02/20 00:34 Discharged to Home. Impression: Abdominal tenderness, Gastritis, unspecified. - Condition is Stable. - Discharge Instructions: Gastritis, Adult, [id number], Abdominal Pain, Adult, [id number]. - Prescriptions for Bentyl 20 mg Oral Tablet - take 1 tablet by ORAL route every 6 hours As needed; 20 tablet. Carafate 1 gram Oral Tablet - take 1 tablet by ORAL route 4 times per day take on an empty stomach, beginning on waking and last dose at bedtime; 100 tablet. Protonix 40 mg Oral Tablet - take 1 tablet by ORAL route once daily; 30 tablet. - Medication Reconciliation Form, Thank You Letter, Antibiotic Education, Prescription Opioid Use form. - Follow up: Private Physician; When: Upon discharge from the Emergency Department; Reason: Recheck today's complaints, Continuance of care, Re-evaluation by your physician. - Problem is new. - Symptoms have improved. Signatures: Dispatcher [employer] [facility] TrellDennis castro Rob Valero MD MD tw4 Henrietta Awan, RN RN vc Corrections: (The following items were deleted from the chart) 04/01 23:41 23:21 TROPONIN I+C.LAB.BRZ ordered. [facility] 04/02 00:53 00:34 04/02/2020 00:34 Discharged to Home. Impression: Abdominal tenderness; Gastritis, wh unspecified. Condition is Stable. Forms are Medication Reconciliation Form, Thank You Letter, Antibiotic Education, Prescription Opioid Use. Follow up: Private Physician; When: Upon discharge from the Emergency Department; Reason: Recheck today's complaints, Continuance of care, Re-evaluation by your physician. Problem is new. Symptoms have improved. tw4
--- NOTE | 2020-04-02 00:35 | ER ---
Nurse's Notes [facility] Name: Denis Petit Age: 49 yrs Sex: Female : 1970 Arrival Date: 04/01/2020 Time: 20:10 Bed 20 Private MD: Diagnosis: Abdominal tenderness;Gastritis, unspecified Presentation: 04/01 20:17 Chief complaint: Patient states: "I STARTED HAVING STOMACH PAIN TODAY IN MY UPPER vc STOMACH, I THOUGHT I WAS JUST HUNGRY SO I ATE BUT THAT MADE IT SO MUCH WORSE, THEN IT MADE ME VOMIT. I DON'T HAVE MY GALL BLADDER SO IT CAN NOT BE THAT.". Coronavirus screen: Proceed with normal triage. Patient reports a cough. Patient denies shortness of breath or difficulty breathing. Patient denies measured and/or subjective temperature greater than 100.4F prior to today's visit. Patient denies travel on a cruise ship or to a country the [facility] currently lists as an affected area. Patient denies contact with known and/or suspected case of COVID-19. Ebola Screen: No symptoms or risks identified at this time. Initial Sepsis Screen: Does the patient meet any 2 criteria? No. Patient's initial sepsis screen is negative. Does the patient have a suspected source of infection? No. Patient's initial sepsis screen is negative. Risk Assessment: Do you want to hurt yourself or someone else? Patient reports no desire to harm self or others. Onset of symptoms was April 01, 2020. 20:17 Method Of Arrival: Ambulatory vc 20:17 Acuity: DORCAS 3 vc Triage Assessment: 20:57 General: Appears in no apparent distress. uncomfortable, ill, Behavior is calm, vc cooperative, appropriate for age. Pain: Complains of pain in right upper quadrant and left upper quadrant Pain currently is 10 out of 10 on a pain scale. Aggravated by eating. GI: Abdomen is round non-distended. 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 - Social history:: Smoking status: Patient denies any tobacco usage or history of. Screenin:45 Abuse screen: Denies threats or abuse. Nutritional screening: No deficits noted. vc Tuberculosis screening: No symptoms or risk factors identified. Fall Risk None identified. Assessment: 20:20 General: Appears in no apparent distress. Behavior is calm, cooperative, appropriate wh for age. Pain: Complains of pain in abdomen and left upper quadrant and right upper quadrant Pain radiates to chest Pain currently is 8 out of 10 on a pain scale. Quality of pain is described as burning, Pain began this morning Is intermittent. Neuro: Level of Consciousness is awake, alert, obeys commands, Oriented to person, place, time, situation, Appropriate for age. Cardiovascular: Heart tones S1 S2 Rhythm is regular. Respiratory: Airway is patent Respiratory effort is even, unlabored, Respiratory pattern is regular, symmetrical, Breath sounds are clear bilaterally. GI: Abdomen is flat, non-distended, Bowel sounds present X 4 quads. Abd is soft and non tender. : No signs and/or symptoms were reported regarding the genitourinary system. EENT: No signs and/or symptoms were reported regarding the EENT system. Derm: Skin is intact, is healthy with good turgor, Skin is pink, warm \\T\\ dry. normal. Musculoskeletal: Circulation, motion, and sensation intact. 21:45 Reassessment: Patient appears in no apparent distress at this time. No changes from previously documented assessment. Patient and/or family updated on plan of care and expected duration. Pain level reassessed. Patient is alert, oriented x 3, equal unlabored respirations, skin warm/dry/pink. 23:15 Reassessment: Patient appears in no apparent distress at this time. No changes from previously documented assessment. Patient and/or family updated on plan of care and expected duration. Pain level reassessed. Patient is alert, oriented x 3, equal unlabored respirations, skin warm/dry/pink. 06/16 00:30 Reassessment: Patient appears in no apparent distress at this time. No changes from previously documented assessment. Patient and/or family updated on plan of care and expected duration. Pain level reassessed. Patient is alert, oriented x 3, equal unlabored respirations, skin warm/dry/pink. Vital Signs: 04/01 20:17 BP 146 / 90; Pulse 82; Resp 19; Temp 97.6; Pulse Ox 98% on R/A; Weight 70.31 kg; Height vc 4 ft. 11 in. (149.86 cm); Pain 10/10; 21:45 BP 142 / 75; Pulse 68; Resp 18; Pulse Ox 100% ; wh 23:00 BP 125 / 74; Pulse 66; Resp 18; Pulse Ox 100% on R/A; wh 04/02 00:30 BP 129 / 56; Pulse 61; Resp 18; Pulse Ox 99% on R/A; wh 04/01 20:17 Body Mass Index 31.31 (70.31 kg, 149.86 cm) vc ED Course: 04/01 20:10 Patient arrived in ED. cf2 20:23 Triage completed. vc 20:26 Rob Christensen MD is Attending Physician. tw4 20:45 Patient has correct armband on for positive identification. Bed in low position. Call vc light in reach. Side rails up X2. Pulse ox on. NIBP on. 20:45 Arm band placed on right wrist. vc 20:56 Dennis Simpson is Primary Nurse. 21:00 Inserted saline lock: 20 gauge in right antecubital area, using aseptic technique. Blood collected. 22:34 CT Abd/Pelvis - IV Contrast Only In Process Unspecified. EDMS 04/02 00:49 No provider procedures requiring assistance completed. IV discontinued, intact, bleeding controlled, No redness/swelling at site. Administered Medications: 00:41 Drug: GI Cocktail without - (Maalox Suspension 30 ml, Lidocaine Liquid 2 % 15 wh ml) Route: PO; 00:52 Follow up: Response: No adverse reaction Outcome: 00:34 Discharge ordered by . tw4 00:52 Discharged to home ambulatory. 00:52 Condition: stable 00:52 Discharge instructions given to patient, Instructed on discharge instructions, follow up and referral plans. medication usage, POC Demonstrated understanding of instructions, follow-up care, medications, POC Prescriptions given X 3. 00:53 Patient left the ED. wh Signatures: Dispatcher [employer] EDDennis Key Terrence, MD MD tw4 Jacqueline Rodrigez cf2 Henrietta Awan, RN RN vc
[2020-04-02] MEDS ORDERED: LIDOCAINE VISCOUS 2% SOLN 15 ML UDC ONE (00:47)
[2020-04-02] MEDS ORDERED: MAGNE/ALUM HYDROXD 30 ML UCUP ONE (00:47)
[2020-04-02 01:30] VITALS: TEMP 97.6
[2020-04-02 01:32] VITALS: O2SAT 100
[2020-04-02 01:34] VITALS: BP 125/74
--- NOTE | 2020-04-02 20:44 | RAD REPORT ---
EXAM DESCRIPTION: CT - Abdomen Pelvis W Contrast - 04/02/2020 1:54 am CLINICAL HISTORY: The patient is 49 years old and is Female; ABD PAIN TECHNIQUE: Axial computed tomography images of the abdomen and pelvis with intravenous contrast. S agittal and coronal reformatted images were created and reviewed. This CT exam was performed using one or more of the following dose reduction techniques: automated exposure control, adjustment of t he mA and/or kV according to patient size, and/or use of iterative reconstruction technique. COMPARISON: No relevant prior studies available. FINDINGS: LUNG BASES: Unremarkable. No mass. No consolidation. ABDOMEN: LIVER: Unremarkable. No mass. GALLBLADDER AND BILE DUCTS: Surgical clips are present in the right upper quadrant, consistent wi th previous cholecystectomy. PANCREAS: No ductal dilation. No mass. SPLEEN: Unremarkable. ADRENALS: Unremarkable. No mass. KIDNEYS AND URETERS: Unremarkable. The kidneys enhance symmetrically. No obstructing renal or ure teral calculus is seen. No hydronephrosis or hydroureter. No perinephric fluid or stranding. STOMACH AND BOWEL: The stomach is decompressed. The small bowel is normal in caliber. Stool is n oted throughout the colon. There is no mucosal thickening or evidence of bowel obstruction. PELVIS: APPENDIX: The appendix is normal in caliber without surrounding inflammation. BLADDER: The bladder is not well distended. REPRODUCTIVE: Unremarkable as visualized. ABDOMEN and PELVIS: INTRAPERITONEAL SPACE: Trace free fluid is present within the pelvis which is likely physiologic . No free air. BONES/JOINTS: Minimal degenerative change of the spine is present. SOFT TISSUES: The soft tissues are normal. VASCULATURE: Unremarkable. No abdominal aortic aneurysm. LYMPH NODES: Unremarkable. No enlarged lymph nodes. IMPRESSION: No acute findings on this contrasted CT of the abdomen and pelvis to explain the patient's symptom s. Electronically signed by: Bridgette Silveira MD 04/01/2020 10:40 PM CDT Due to temporary technical issues with the PACS/Fluency reporting system, reports are being signed by the in house radiologist without review as a courtesy to ensure prompt reporting. The interpreting r adiologist is fully responsible for the content of the report.
--- NOTE | 2020-04-03 06:28 | EKG ---
Test Date: 2020-04-01 Test Time: 21:06:25 Service Inspector: IRMA MEASUREMENT RESULTS: Intervals: Rate: 65 KS: 176 QRSD: 96 QT: 376 QTc: 391 [place]: P: 66 KS: 176 QRS: -19 T: 47 INTERPRETIVE STATEMENTS: Normal sinus rhythm Normal ECG Compared to ECG 12/09/2018 10:41:49 No significant changes Electronically Signed On 04-03-20 06:24:44 CDT by Russell Dias
== END 2020-04-02 00:53 | disposition home or self-care (01) ==
LOC: ER 18:49
DX: K29.70 Gastritis, unspecified, without bleeding (principal); Z91.010 Allergy to peanuts; Z91.018 Allergy to other foods
CPT/HCPCS: 93005; 85025; 80048; 36415; 80076; 84484; 83690; 74177; 99284; Q9967

== ENCOUNTER 2022-10-29 19:23 | Emergency (ER) | payer BC ==
--- OUTSIDE RECORDS SUMMARY | 2022-10-29 19:29 | XMS REPORT | Continuity of Care Document ---
:1970 Author Organization [facility] t Address [address] [place] [address] Care Team Providers Name Role Phone HEMANT ILDA Attending Clinician Unavailable Doctor Unassigned, Halbur Attending Clinician Unavailable ANJALI HYMAN Attending Clinician Unavailable TREY KAUFMAN Attending Clinician Unavailable Lab, Ad[facility] Fam Pob I Attending Clinician Unavailable Trey Jacobs Attending Clinician Chago Day Attending Clinician Payers Payer Name Policy Type Policy Number Effective Date Expiration Date [id number] 2017 - OUT OF STATE 2 00:00:00 Blue [employer] and C1 [id number] Common pirit [facility] Blue Cross and C1 [id number] Common pirit [facility] Problems Condition Condition Condition Status Onset Resolution Last Treating Co mments Source Name Details Category Date Date Treatment Clinician Date [id number] Pain in Problem Active Commo n left ankle Spirit and joints - [facility] of left [facility] Allergies, Adverse Reactions, Alerts Allergy Allergy Status Severity Reaction(s) Onset Inactive Treating Comm ents Source Name Type Date Date Clinician NO KNOWN Drug Active Univers ALLERGIE Class ity of [facility] Social History Social Habit Start Date Stop Date Quantity Comments Source Sex Assigned At Common Sp terrance - [facility] History of Tobacco Current Smoker Co mmon Spirit - [facility] Use [facility] Exposure to Not sure [facility] SARS-CoV-2 (event) Medica l Branch Smoking Status Start Date Stop Date Source Current Smoker 2020-07-29 00:00:00 Common Spiri t - [facility] Medications Ordered Filled Start Stop Current Ordering Indication Dosage Frequency Signature Comments Components Source Medication Medication Date Date Medication? Clinician (SIG) Name Name topiramate Yes TAKE 1 Unive rs 50 mg 3-27 TABLET BY ity of tablet 00:00: MOUTH [place] TWICE A Medical DAY Branch topiramate Yes TAKE 1 Unive rs 50 mg 3-27 TABLET BY ity of tablet 00:00: MOUTH [place] TWICE A Medical DAY [place] montelukast Yes TAKE 1 Univ ers 10 mg 2-08 TABLET (10 ity of tablet 00:00: MG) BY [place] [address] MOUTH Medical DAILY IN Branch THE EVENING montelukast Yes TAKE 1 Univ ers 10 mg 2-08 TABLET (10 ity of tablet 00:00: MG) BY [place] [address] MOUTH Medical DAILY IN Branch THE EVENING Mupirocin Mupirocin Yes Sha not Co mmon Steve defined [facility] Azithromyci Azithromyci Yes Sha not Common n n Steve defined [facility] CVS CVS Yes Sha not Common Magnesium Magnesium Steve defined Sp terrance Oxide [facility] Symbicort Symbicort Yes Sha not Co mmon Steve defined [facility] Dicyclomine Dicyclomine Yes Sha not Common HCl HCl Steve defined Spirit [facility] Amoxicillin Amoxicillin Yes Sha not Common Steve defined Spirit [facility] Mobic 7.5 Mobic 7.5 No 1{table QD Mobic 7.5 Common MG MG t} MG Spirit [facility] Azithromyci Azithromyci No Azithromyc Common n n in [facility] Mupirocin Mupirocin No Mupirocin Common [facility] Famotidine Famotidine No Famotidine Common [facility] PredniSONE PredniSONE No PredniSONE Common [facility] Dicyclomine Dicyclomine No Dicyclomin Common HCl HCl e HCl [facility] Magnesium Magnesium No Magnesium Common Oxide Oxide Oxide [facility] Fluticasone Fluticasone No Fluticason Common Propionate Propionate e Spi rit 50 MCG/ACT 50 MCG/ACT Propionate - CHI 50 MCG/ACT [facility] Amoxicillin Amoxicillin No Amoxicilli Common n [facility] Fluconazole Fluconazole No Fluconazol Common e [facility] Pantoprazol Pantoprazol No Pantoprazo Common e Sodium e Sodium le Sodium Sp terrance [facility] ProAir HFA ProAir HFA No ProAir HFA Common 108 (90 108 (90 108 (90 Spirit Base) Base) Base) - CHI MCG/ACT MCG/ACT MCG/ACT [facility] Symbicort Symbicort No Symbicort Common [facility] Personal Personal No Personal Com mon Best Full Best Full Best Full Spirit Range Range [facility] CVS CVS No CVS Common Magnesium Magnesium Magnesium Spirit Oxide Oxide Oxide [facility] Meloxicam Meloxicam No Meloxicam [facility] Sucralfate Sucralfate No Sucralfate [facility] Doxycycline Doxycycline No Doxycyclin Common Monohydrate Monohydrate e S pirit Monohydrat - [facility] e [facility] Promethazin Promethazin No Promethazi Common e-Codeine e-Codeine ne-Codeine [facility] Budesonide- Budesonide- No Budesonide Common Formoterol Formoterol -Formotero Spirit Fumarate Fumarate l Fumarate [facility] Flovent HFA Flovent HFA No Flovent Common HFA [facility] Topiramate Topiramate No Topiramate [facility] Mobic 7.5 Mobic 7.5 No 1{table QD Mobic 7.5 MG MG t} MG Azithromyci Azithromyci No Azithromyc n n in Mupirocin Mupirocin No Mupirocin Famotidine Famotidine No Famotidine PredniSONE PredniSONE No PredniSONE Dicyclomine Dicyclomine No Dicyclomin HCl HCl e HCl Magnesium Magnesium No Magnesium Oxide Oxide Oxide Fluticasone Fluticasone No Fluticason Propionate Propionate e 50 MCG/ACT 50 MCG/ACT Propionate 50 MCG/ACT Amoxicillin Amoxicillin No Amoxicilli n Fluconazole Fluconazole No Fluconazol e Pantoprazol Pantoprazol No Pantoprazo e Sodium e Sodium le Sodium ProAir HFA ProAir HFA No ProAir HFA 108 (90 108 (90 108 (90 Base) Base) Base) MCG/ACT MCG/ACT MCG/ACT Symbicort Symbicort No Symbicort Personal Personal No Personal Best Full Best Full Best Full Range Range Range CVS CVS No CVS Magnesium Magnesium Magnesium Oxide Oxide Oxide Meloxicam Meloxicam No Meloxicam Sucralfate Sucralfate No Sucralfate Doxycycline Doxycycline No Doxycyclin Monohydrate Monohydrate e Monohydrat e Promethazin Promethazin No Promethazi e-Codeine e-Codeine ne-Codeine Budesonide- Budesonide- No Budesonide Formoterol Formoterol -Formotero Fumarate Fumarate l Fumarate Flovent HFA Flovent HFA No Flovent HFA Topiramate Topiramate No Topiramate ProAir HFA ProAir HFA Yes Sha TAKE 2 Common Steve PUFFS BY Spirit MOUTH - CHI EVERY [address] [facility] HOURS [facility] Fluticasone Fluticasone Yes Sha USE 2 Common Propionate Propionate Steve SPRAYS S pirit INTRANASAL - CHI LY DAILY St IN EACH [facility] Mobic Mobic Yes Sha 1 tablet Common Steve Spirit [facility] Budesonide- Budesonide- Yes Sha not Common Formoterol Formoterol Steve defined Spirit Fumarate Fumarate - [facility] Meloxicam Meloxicam Yes Sha not Co mmon Steve defined [facility] Sucralfate Sucralfate Yes Sha not Common Steve defined Spirit [facility] Flovent HFA Flovent HFA Yes Sha not Common Steve defined [facility] Promethazin Promethazin Yes Sha not Common e-Codeine e-Codeine Steve defined Sp terrance - [facility] Personal Personal Yes Sha not Comm on Best Full Best Full Steve defined Sp terrance Range Range - [facility] Pantoprazol Pantoprazol Yes Sha not Common e Sodium e Sodium Steve defined Spir it [facility] Famotidine Famotidine Yes Sha not Common Steve defined [facility] Magnesium Magnesium Yes Sha not Co mmon Oxide Oxide Steve defined [facility] Fluconazole Fluconazole Yes Sha not Common Steve defined [facility] PredniSONE PredniSONE Yes Sha not Common Steve defined [facility] Doxycycline Doxycycline Yes Sha not Common Monohydrate Monohydrate Steve defined [facility] Immunizations Ordered Immunization Filled Immunization Date Status Commen ts Source Name Name Bupivicaine [place] Bupivicaine [place] 2020-06-28 Completed Common Spirit 08:46:00 [facility] Bupivicaine [place] Bupivicaine [place] 2020-06-28 Completed Common Spirit 08:46:00 [facility] Celestone Soluspan [place] Soluspan 2020-06-28 Completed Common Spirit (Betamethasone) (Betamethasone) 08:42:00 [facility] Sol[facility] 2020-06-28 Completed Common Spirit (Betamethasone) (Betamethasone) 08:42:00 [facility] Vital Signs Vital Name Observation Time Observation Value Comments Source height 2020-07-29 08:45:00 59 [in_i] [facility] weight 2020-07-29 08:45:00 154 [lb_av] [facility] temperature 2020-07-29 08:45:00 97.3 [degF] [facility] bmi 2020-07-29 08:45:00 31.1 kg/m2 [facility] blood pressure 2020-07-29 08:45:00 132 mm[Hg] [facility] systolic [facility] blood pressure 2020-07-29 08:45:00 84 mm[Hg] [facility] diastolic [facility] Procedures Procedure Date / Time Performed Performing Clinician Sourc e EXTERNAL PROVIDER - 2020-12-04 06:01:00 [facility] Name Medical Branch Encounters Start End Encounter Admission Attending Care Care Encounter Source Date/Time Date/Time Type Type Clinicians Facility Department ID 2021-11-12 Outpatient STLMLC STLMLC [id number] Common 11:32:05 [id number] [facility] 2021-11-12 Outpatient STLMLC STLMLC [id number] Common 11:29:56 [id number] [facility] 2021-06-03 2021-06-03 Outpatient R HEMANT [facility] [id number] Univers 09:10:00 09:10:00 ILDA ity o f [facility] 2020-12-04 2020-12-04 Orders Doctor DEMI [id number] Univers 00:00:00 00:00:00 Only Unassigned, JUAN [id number] ity of [facility] [id number] Mohan as [phone] [address] 2020-11-22 2020-11-22 [facility] [id number] Univers 16:00:00 16:00:00 ANJALI ity o f [facility] 2020-10-13 2020-10-13 [facility] [id number] Univers 11:40:00 11:40:00 TREY ity of [facility] 2020-10-13 2020-10-13 Laboratory Lab, [facility] Fam Pob I [facility] [id number] Univers 11:03:55 11:23:55 Only Trey Kaufman [facility] [id number] ity of [place] [id number] Mohan as Professio [phone] [place] dical [address] Office Building One 2020-08-09 2020-08-09 (TEL) STLMLC STLMLC [id number] Co mmon 00:00:00 00:00:00 [facility] 2020-07-29 2020-07-29 OFFICE STLC STLMLC [id number] Co mmon 00:00:00 00:00:00 VISIT EST Spir it PT LEVEL 3 [facility] 2020-07-09 2020-07-09 (TEL) STLMLC STLMLC [id number] Co mmon 00:00:00 00:00:00 Spirit - [facility] 2020-06-28 2020-06-28 [id number] Common 08:00:00 08:00:00 t Bone Bone and Spiri t and Joint Joint - [facility] 2020-06-03 2020-06-03 [facility] [id number] Common 11:25:00 11:25:00 t Bone Bone and Spiri t and Joint Joint - [facility] 2020-05-07 2020-05-07 [facility] [id number] Common 08:30:00 08:30:00 t Bone Bone and Spiri t and Joint Joint - [facility] 2020-04-17 2020-04-17 [facility] [id number] Common 13:42:00 13:42:00 t Bone Bone and Spiri t and Joint Joint - [facility] 2019-07-03 2019-07-03 Out[facility] [id number] Common 08:29:00 08:29:00 t Bone Bone and Spiri t and Joint Joint - [facility] 2019-06-08 2019-06-08 [facility] [id number] Common 08:26:00 08:26:00 t Bone Bone and Spiri t and Joint Joint - [facility] 2019-04-13 2019-04-13 [facility] [id number] Common 08:00:00 08:00:00 t Bone Bone and Spiri t and Joint Joint - [facility] 2019-03-02 2019-03-02 [facility] [id number] Common 15:25:00 15:25:00 t Bone Bone and Spiri t and Joint Joint - [facility] 2019-02-02 2019-02-02 [facility] [id number] Common 08:00:00 08:00:00 t Bone Bone and Spiri t and Joint Joint - [facility] 2019-01-03 2019-01-03 [facility] [id number] Common 08:00:00 08:00:00 t Bone Bone and Spiri t and Joint Joint - [facility] 2018-11-30 2018-11-30 [facility] [id number] Common 08:00:00 08:00:00 t Bone Bone and Spiri t and Joint Joint - [facility] 2018-11-29 2018-11-29 Out[facility] [id number] Common 08:51:00 08:51:00 t Bone Bone and Spiri t and Joint Joint - [facility] 2018-11-24 2018-11-24 [facility] [id number] Common 14:01:00 14:01:00 t Bone Bone and Spiri t and Joint Joint - [facility] 2018-11-24 2018-11-24 [facility] [id number] Common 10:00:00 10:00:00 t Bone Bone and Spiri t and Joint Joint - [facility] 2018-11-21 2018-11-21 Out[facility] [id number] Common 15:00:00 15:00:00 t Bone Bone and Spiri t and Joint Joint - [facility] 2018-10-13 2018-10-13 Outpatient [facility] [id number] Common 10:30:00 10:30:00 t Bone Bone and Spiri t and Joint Joint - [facility] 2018-08-03 2018-08-03 Out[facility] [id number] Common 10:56:00 10:56:00 t Bone Bone and Spiri t and Joint Joint - [facility] 2018-07-25 2018-07-25 Out[facility] [id number] Common 09:45:00 09:45:00 t Bone Bone and Spiri t and Joint Joint - [facility] 2018-01-03 2018-01-05 Phone nullFlavo MNA [id number] Memoria 20:09:00 04:59:59 Message r Neurology 02 l [facility] 2018-01-03 2018-01-04 Outpatient MHMISCHER MHMISCHER [id number] 15:09:00 23:59:59 02 2017-12-31 2018-01-02 Phone nullFlavo MNA [id number] Memoria 20:03:00 04:59:59 Message r Neurology 01 l [facility] 2017-12-31 2018-01-01 Outpatient MHMISCHER MHMISCHER [id number] 15:03:00 23:59:59 2017-12-27 2017-12-28 Outpatient nullFlavo MNA [id number] Memoria 19:30:00 04:59:59 r Neurology 00 l [facility] 2017-12-27 2017-12-27 Outpatient [place], MHMISCHER MHMISCHER [id number] 14:30:00 23:59:59 Chago S 00 2017-12-27 2017-12-27 Outpatient MHIE MHIE [id number] Memoria 14:30:00 14:30:00 00 [facility] 2017-12-08 2017-12-10 Phone nullFlavo MNA [id number] Memoria 22:14:00 05:59:59 Message r Neurology 00 l [facility] 2017-12-08 2017-12-09 Outpatient MHMISCHER MHMISCHER [id number] 16:14:00 23:59:59 00 Results This patient has no known results.
[2022-10-29 20:23] LABS: Urine Blood 3+ (Negative); Urine Glucose Negative (Negative); Urine Protein Trace (Negative); Urine Specific Gravity 1.015 (1.005-1.030)
[2022-10-29 20:43] LABS: Urine Bacteria <20 /HPF (<20); Urine RBC >50 /HPF (None Seen)
[2022-10-29 20:50] LABS: Absolute Lymphocytes (CBC) 2.3 K/uL (0.7-4.9); Hematocrit 42.3 % (36.0-45.0); MPV 7.2 fL (7.6-11.3); RBC Red Blood Cell Count 4.92 M/uL (3.86-4.86)
[2022-10-29 21:07] LABS: Albumin 3.8 g/dL (3.4-5.0); Bilirubin Total 0.3 mg/dL (0.2-1.0); Potassium 3.4 mmol/L (3.5-5.1)
--- NOTE | 2022-10-29 21:10 | RAD REPORT ---
EXAM DESCRIPTION: CTStone Protocol - 10/29/2022 8:56 pm CLINICAL HISTORY: left flank pain COMPARISON: Chest Single View dated 04/29/2022; Chest Single View dated 05/23/2020; Chest Single View d ated 12/06/2019; Chest Single View dated 07/15/2019Abdomen Pelvis W Contrast dated 04/01/2020 TECHNIQUE: CT of the abdomen and pelvis was performed without IV contrast. All CT scans are performed using dose optimization technique as appropriate and may include automated exposure control or mA/KV adjustment according to patient size. FINDINGS: Lower chest: Bilateral breast prostheses. Liver: No acute abnormality or suspicious lesions. Biliary: Cholecystectomy Stomach: No significant focal abnormality. Duodenum: No significant focal abnormality. Pancreas: No significant abnormality. Spleen: No significant abnormality. Adrenal: No suspicious lesions. Kidney/ureter: No hydronephrosis. No renal calculi. Retroperitoneum: No retroperitoneal adenopathy. Vascular: No aneurysm. Atherosclerosis Bowel: No significant focal abnormality. Normal appendix. Peritoneum: No ascites or free air. Surgical changes in the anterior abdominal wall. Bladder: Grossly unremarkable. Reproductive: No adnexal masses. Retroverted uterus . Bones: No acute fracture. Other: n/a IMPRESSION: No acute intra-abdominal or pelvic finding. No urinary tract calculi identified. Normal appendix.
[2022-10-29 21:26] LABS: Urine Specific Gravity/Preg 1.015 (1.005-1.030)
[2022-10-29] MEDS ORDERED: CEFTRIAXONE 1000 MG/VIAL ONE (21:52)
[2022-10-29] MEDS ORDERED: POTASSIUM 25 MEQ EFFERV TAB ONE (21:52)
[2022-10-29] MEDS ORDERED: KETOROLAC 30 MG/ML INJ ONE (21:52)
--- NOTE | 2022-10-29 22:02 | ER ---
Nurse's Notes [facility] Name: Denis Petit Age: 52 yrs Sex: Female : 1970 Arrival Date: 10/29/2022 Time: 19:28 Bed 11 Private MD: Diagnosis: UTI/ Urinary tract infection, site not specified Presentation: 10/29 19:45 Chief complaint: Patient states: she has urine in her blood with abdominal pain bb starting today. Coronavirus screen: At this time, the client does not indicate any symptoms associated with coronavirus-19. Ebola Screen: No symptoms or risks identified at this time. Initial Sepsis Screen: Does the patient meet any 2 criteria? No. Patient's initial sepsis screen is negative. Does the patient have a suspected source of infection? No. Patient's initial sepsis screen is negative. Risk Assessment: Do you want to hurt yourself or someone else? Patient reports no desire to harm self or others. Onset of symptoms was October 29, 2022. 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: 19:49 LMP N/A - Post-menopause bb Historical: - Allergies: 19:49 Chocolate; bb 19:49 Peanut; bb 19:49 PORK/PORCINE PRODUCT DERIVATIVES; bb 19:49 Strawberries; bb - Home Meds: 19:49 albuterol sulfate 2.5 mg /3 mL (0.083 %) Inhl nebu [Active]; famotidine 10 mg Oral tab bb 1 tab once daily [Active]; fluticasone [Active]; montelukast 10 mg Oral tab 1 tab once daily [Active]; topiramate 50 mg Oral tab 1 tab 2 times per day [Active]; - PMHx: 19:49 Migraines; Asthma; bb - PSHx: 19:49 breast augmentation; tummy tuck; cerclage; Tonsillectomy; Cholecystectomy; bb - Immunization history:: Client reports receiving the Hernandez \T\ Hernandez single-dose vaccine. Screenin:54 [facility] ED Fall Risk Assessment (Adult) History of falling in the last 3 months, mb9 including since admission No falls in past 3 months (0 pts) Confusion or Disorientation No (0 pts) Intoxicated or Sedated No (0 pts) Impaired Gait No (0 pts) Mobility Assist Device Used No (0 pt) Altered Elimination No (0 pt) Score/Fall Risk Level 0 - 2 = Low Risk Oriented to surroundings, Maintained a safe environment, Educated pt \T\ family on fall prevention, incl call for assistance when getting out of bed. Abuse screen: Denies threats or abuse. Nutritional screening: No deficits noted. Tuberculosis screening: No symptoms or risk factors identified. Assessment: 20:09 General: Appears in no apparent distress. comfortable, Behavior is calm, cooperative, mb9 appropriate for age. Pain: Complains of pain in bladder. Neuro: Level of Consciousness is awake, alert, obeys commands, Oriented to person, place, time, situation, none. Cardiovascular: Capillary refill < 3 seconds is brisk Patient's skin is warm and dry. Respiratory: Airway is patent Respiratory effort is even, unlabored, Respiratory pattern is regular, symmetrical. GI: No signs and/or symptoms were reported involving the gastrointestinal system. : Urine is cloudy, Reports burning with urination, urgency, urinary frequency. EENT: No signs and/or symptoms were reported regarding the EENT system. Derm: Skin is pink, warm \T\ dry. Musculoskeletal: Reports pain in back. 20:55 Reassessment: Pt taken to CT via wheelchair. mb9 21:16 Reassessment: No changes from previously documented assessment. Patient and/or family mb9 updated on plan of care and expected duration. Pain level reassessed. Patient is alert, oriented x 3, equal unlabored respirations, skin warm/dry/pink. 22:03 Reassessment: No changes from previously documented assessment. Patient and/or family mb9 updated on plan of care and expected duration. Pain level reassessed. Patient is alert, oriented x 3, equal unlabored respirations, skin warm/dry/pink. Vital Signs: 19:45 BP 148 / 101; Pulse 93; Resp 18 S; Temp 98.2(O); Pulse Ox 97% on R/A; Weight 67.04 kg bb (R); Height 4 ft. 11 in. (149.86 cm) (R); Pain 7/10; 20:44 BP 128 / 76; Pulse 84; Resp 16; Pulse Ox 100% on R/A; mb9 22:03 BP 124 / 80; Pulse 74; Resp 17; Pulse Ox 100% ; Pain 0/10; mb9 19:45 Body Mass Index 29.85 (67.04 kg, 149.86 cm) bb ED Course: 19:28 Patient arrived in ED. as 19:29 Yoni Arnett PA is PHCP. cp 19:29 Hoda Hernandes MD is Attending Physician. cp 19:49 Triage completed. bb 19:49 Arm band placed on Patient placed in an exam room, on a stretcher, on pulse oximetry. bb 19:53 Love Nunez, RN is Primary Nurse. mb9 19:54 Bed in low position. Call light in reach. Side rails up X 1. Client placed on mb9 continuous cardiac and pulse oximetry monitoring. NIBP monitoring applied. Door closed. Noise minimized. Warm blanket given. 20:24 Urine Microscopic Only Sent. mb9 20:44 CBC with Diff Sent. mb9 20:44 CMP Sent. mb9 20:44 Lipase Sent. mb9 20:44 Inserted saline lock: 20 gauge in right forearm, using aseptic technique. Blood mb9 collected. 20:58 [facility] Protocol In Process Unspecified. EDMS 22:02 No provider procedures requiring assistance completed. IV discontinued, intact, mb9 bleeding controlled, No redness/swelling at site. Pressure dressing applied. Administered Medications: 21:48 Drug: Ketorolac 15 mg Route: IVP; Site: right forearm; mb9 21:56 Drug: Rocephin (cefTRIAXone) 1 grams Route: IV; Rate: calculated rate; Site: right mb9 forearm; 21:56 Drug: Potassium Effervescent Tablet 50 mEq Route: PO; mb9 Medication: 19:54 VIS not applicable for this client. mb9 Outcome: 22:02 Discharge ordered by . cp 22:04 Discharged to home ambulatory. mb9 22:04 Condition: stable 22:04 Discharge instructions given to patient, Instructed on discharge instructions, follow up and referral plans. Demonstrated understanding of instructions, follow-up care, medications, Prescriptions given X 3. 22:29 Patient left the ED. mb9 Signatures: Dispatcher [employer] EDMS Nicole Napier Brenda, RN RN bb Page, Corey, PA PA cp Breneman, Mary Beth, RN RN mb9
--- NOTE | 2022-10-29 22:02 | EDPHYS ---
Physician Documentation [facility] Name: Denis Petit Age: 52 yrs Sex: Female : 1970 Arrival Date: 10/29/2022 Time: 19:28 Bed 11 Private MD: ED Physician Hoda Hernandes HPI: 10/29 20:15 This 52 yrs old Female presents to ER via Ambulatory with complaints of cp Urinary Problem. 20:15 The patient presents with urinary symptoms, hematuria. Onset: The symptoms/episode cp began/occurred this morning. 20:15 Associated signs and symptoms: Pertinent positives: dysuria, hematuria, left lower back cp and lower abdomen pain, Pertinent negatives: constipation, diarrhea, fever, vaginal bleeding, vaginal discharge, vomiting. Severity of symptoms: in the emergency department the symptoms are unchanged, despite home interventions. 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 bb Historical: - Allergies: 19:49 Chocolate; bb 19:49 Peanut; bb 19:49 PORK/PORCINE PRODUCT DERIVATIVES; bb 19:49 Strawberries; bb - Home Meds: 19:49 albuterol sulfate 2.5 mg /3 mL (0.083 %) Inhl nebu [Active]; famotidine 10 mg Oral tab bb 1 tab once daily [Active]; fluticasone [Active]; montelukast 10 mg Oral tab 1 tab once daily [Active]; topiramate 50 mg Oral tab 1 tab 2 times per day [Active]; - PMHx: 19:49 Migraines; Asthma; bb - PSHx: 19:49 breast augmentation; tummy tuck; cerclage; Tonsillectomy; Cholecystectomy; bb - Immunization history:: Client reports receiving the Hernandez \T\ Hernandez single-dose vaccine. ROS: 20:20 Constitutional: Negative for body aches, chills, fever, poor PO intake. cp 20:20 Eyes: Negative for injury, pain, redness, and discharge. cp 20:20 ENT: Negative for drainage from ear(s), ear pain, sore throat, difficulty swallowing, difficulty handling secretions. 20:20 Cardiovascular: Negative for chest pain, palpitations. 20:20 Respiratory: Negative for cough, shortness of breath, wheezing. 20:20 Abdomen/GI: Positive for abdominal pain, Negative for vomiting, diarrhea, constipation. 20:20 Back: Positive for pain at rest, of the left low back. 20:20 : Positive for hematuria, Negative for vaginal bleeding, vaginal discharge. 20:20 Neuro: Negative for altered mental status, headache, numbness, tingling, weakness. 20:20 All other systems are negative. Exam: 20:25 Constitutional: The patient appears in no acute distress, alert, awake, non-toxic, well cp developed, well nourished. 20:25 Head/Face: Normocephalic, atraumatic. cp 20:25 Eyes: Periorbital structures: appear normal, Conjunctiva: normal, no exudate, no injection, Sclera: no appreciated abnormality, Lids and lashes: appear normal, bilaterally. 20:25 ENT: External ear(s): are unremarkable, Nose: is normal, Mouth: Lips: moist, Oral mucosa: moist, Posterior pharynx: Airway: no evidence of obstruction, patent. 20:25 Chest/axilla: Inspection: normal. 20:25 Cardiovascular: Rate: normal. 20:25 Respiratory: the patient does not display signs of respiratory distress, Respirations: normal, no use of accessory muscles, no retractions, labored breathing, is not present. 20:25 Abdomen/GI: Inspection: abdomen appears normal, Bowel sounds: active, all quadrants, Palpation: soft, in all quadrants, mild abdominal tenderness, in the posterior aspect of left lateral abdomen, anterior aspect of left lateral abdomen and left lower quadrant, rebound tenderness, is not appreciated. 20:25 Back: pain, that is mild, of the left low back, ROM is normal. 20:25 Neuro: Orientation: to person, place \T\ time. Mentation: is normal, Motor: moves all fours, strength is normal, Sensation: is normal. Vital Signs: 19:45 BP 148 / 101; Pulse 93; Resp 18 S; Temp 98.2(O); Pulse Ox 97% on R/A; Weight 67.04 kg bb (R); Height 4 ft. 11 in. (149.86 cm) (R); Pain 7/10; 20:44 BP 128 / 76; Pulse 84; Resp 16; Pulse Ox 100% on R/A; mb9 22:03 BP 124 / 80; Pulse 74; Resp 17; Pulse Ox 100% ; Pain 0/10; mb9 19:45 Body Mass Index 29.85 (67.04 kg, 149.86 cm) bb MDM: 19:57 Patient medically screened. 21:00 Differential diagnosis: kidney stone, ovarian cyst, urinary tract infection, vaginosis, cp sepsis. 22:00 Data reviewed: vital signs, nurses notes, lab test result(s), radiologic studies, CT cp scan. 22:00 I considered the following discharge prescriptions or medication management in the emergency department Medications were administered in the Emergency Department. See MAR. Test considered but Not performed: Ultrasound renal US. Counseling: I had a detailed discussion with the patient and/or guardian regarding: the historical points, exam findings, and any diagnostic results supporting the discharge/admit diagnosis, lab results, radiology results, to return to the emergency department if symptoms worsen or persist or if there are any questions or concerns that arise at home. 10/29 20:10 Order name: Urine Microscopic Only; Complete Time: 21:41 10/29 21:41 Interpretation: Normal except: UWBC 20-50; URBC >50. 10/29 20:12 Order name: CBC with Diff; Complete Time: 21:41 10/29 21:41 Interpretation: Normal except: RBC 4.92; MPV 7.2. 10/29 20:12 Order name: CMP; Complete Time: 21:41 10/29 21:42 Interpretation: Normal except: K 3.4; GLUC 116; BUN 21; GFR 76; ALK 136. 10/29 20:12 Order name: Lipase; Complete Time: 21:41 10/29 20:23 Order name: Urine Dipstick-Ancillary; Complete Time: 21:41 [facility] 10/29 20:26 Order name: Urine --Ancillary (enter results); Complete Time: 21:41 10/29 20:10 Order name: Urine Dipstick-Ancillary (obtain specimen); Complete Time: 20:24 10/29 20:10 Order name: Urine Test (obtain specimen); Complete Time: 20:24 10/29 20:10 Order name: CT Stone Protocol; Complete Time: 21:41 10/29 20:12 Order name: IV Saline Lock; Complete Time: 20:44 10/29 21:17 Order name: Urine Culture [facility] 10/29 20:12 Order name: Labs collected and sent; Complete Time: 20:44 cp Administered Medications: 21:48 Drug: Ketorolac 15 mg Route: IVP; Site: right forearm; mb9 21:56 Drug: Rocephin (cefTRIAXone) 1 grams Route: IV; Rate: calculated rate; Site: right mb9 forearm; 21:56 Drug: Potassium Effervescent Tablet 50 mEq Route: PO; mb9 Disposition Summary: 10/29/22 22:02 Discharge Ordered Location: Home cp Problem: new cp Symptoms: have improved cp Condition: Stable cp Diagnosis - UTI/ Urinary tract infection, site not specified cp Followup: cp - With: Private Physician - When: 2 - 3 days - Reason: Recheck today's complaints Discharge Instructions: - Discharge Summary Sheet cp - Urinary Tract Infection, Adult cp Forms: - Medication Reconciliation Form cp - Thank You Letter cp - Antibiotic Education cp - Prescription Opioid Use cp Prescriptions: - Ibuprofen 800 mg Oral Tablet - take 1 tablet by ORAL route every 8 hours As needed take with food; 30 tablet; cp Refills: 0, Product Selection Permitted - Pyridium 200 mg Oral Tablet - take 1 tablet by ORAL route every 8 hours for 2 days; 6 tablet; Refills: 0, cp Product Selection Permitted - cefpodoxime 200 mg Oral Tablet - take 1 tablet by ORAL route every 12 hours for 7 days with food; 14 tablet; cp Refills: 0, Product Selection Permitted Signatures: Dispatcher [employer] EDGA Salina Zayas, RN Yoni Hardy PA PA cp Breneman, Mary Beth RN RN mb9
[2022-10-29 23:08] VITALS: TEMP 98.2
[2022-10-29 23:09] VITALS: O2SAT 100
[2022-10-29 23:11] VITALS: BP 124/80
== END 2022-10-29 22:29 | disposition home or self-care (01) ==
LOC: ER 19:23
DX: N39.0 Urinary tract infection, site not specified (principal); Z98.82 Breast implant status; Z91.010 Allergy to peanuts; Z91.014 Allergy to mammalian meats; Z91.018 Allergy to other foods
CPT/HCPCS: 36415; 74176; 76377; 80053; 81003; 81015; 81025; 83690; 85025; 87077; 87086; 87088; 87186; 96374; 96375; 99284

== ENCOUNTER 2024-09-11 21:43 | Emergency (ER) | payer BC ==
[2024-09-11] MEDS ORDERED: ONDANSETRON 4 MG/2 ML VIAL ONE (22:46)
[2024-09-11] MEDS ORDERED: KETOROLAC 30 MG/ML INJ ONE (22:47)
[2024-09-11] MEDS ORDERED: NA CHLORIDE 0.9% 1,000 ML ONE (22:47)
[2024-09-11 23:01] LABS: Absolute Basophils 0.1 K/uL (0-0.5); Absolute Eosinophils 0.2 K/uL (0-0.5); Absolute Lymphocytes (CBC) 0.4 K/uL (0.7-4.9); Absolute Monocytes 0.4 K/uL (0.1-1.3); Absolute Neutrophil 7.6 K/uL (1.8-8.0); Basophils % 0.6 % (0-1.3); Eosinophils % 1.8 % (0-4.4); Hematocrit 42.6 % (36.0-45.0); Hemoglobin 14.7 g/dL (12.0-15.0); Lymphocytes % 4.3 % (15.3-44.8); MCH 29.8 pg (27.0-35.0); MCHC 34.4 g/dL (32.0-36.0); MCV 86.6 fL (80-100); MPV 7.1 fL (7.6-11.3); Monocytes % 4.6 % (3.3-12.3); Neutrophils % 88.7 % (41.7-73.7); Nucleated Red Blood Cells % 0.1 % (0-0); PT Prothrombin Time 12.5 SECONDS (9.4-12.5); PTT, Activated Partial Thromb 34.8 SECONDS (24.3-36.9); Platelets 258 thou/uL (152-406); Protime INR 1.12; RBC Red Blood Cell Count 4.92 M/uL (3.86-4.86); Red Cell Distribution Width 13.4 % (12.1-15.2)
[2024-09-11 23:08] LABS: Albumin 3.8 g/dL (3.4-5.0); Albumin/Globulin Ratio 1.2 (1.1-1.8); Anion Gap 9.4 mEq/L (5.0-15.0); Bilirubin Total 0.9 mg/dL (0.2-1.0); Globulin 3.2 g/dL (2.3-3.5); Potassium 3.4 mEq/L (3.5-5.1)
[2024-09-11 23:54] LABS: Band Neutrophils 6 % (0-1); Blood Morphology Comment NOT SEEN (NOT SEEN); Differential Total Cells Count 100; Eosinophils 3 % (0-3); Lymphocytes 3 % (15-42); Monocytes 4 % (0-10); Platelet Estimate ADEQ; Reactive Lymphocytes 1 %; Segmented Neutrophils 83 % (40-80)
--- NOTE | 2024-09-12 01:28 | ER ---
Nurse's Notes [facility] Name: Denis Petit Age: 54 yrs Sex: Female : 1970 Arrival Date: 09/11/2024 Time: 21:43 Bed 27 Private MD: Diagnosis: Left sided colitis Presentation: 09/11 21:55 Chief complaint: Patient states: FEVER, NAUSEA, VOMITING, AND DIARRHEA FOR THE PAST ha1 THREE DAYS. 21:55 Coronavirus screen: Client denies travel out of the [place] in the last 14 days. Ebola ha1 Screen: No symptoms or risks identified at this time. Initial Sepsis Screen: Does the patient meet any 2 criteria? No. Patient's initial sepsis screen is negative. Does the patient have a suspected source of infection? No. Patient's initial sepsis screen is negative. Risk Assessment: Do you want to hurt yourself or someone else? Patient reports no desire to harm self or others. Onset of symptoms was September 11, 2024. 21:55 Method Of Arrival: Ambulatory ha1 21:55 Acuity: DORCAS 3 ha1 Historical: - Allergies: 21:55 Chocolate; ha1 21:55 Peanut; ha1 21:55 PORK/PORCINE PRODUCT DERIVATIVES; ha1 21:55 Strawberries; ha1 - Home Meds: 21:55 albuterol sulfate 2.5 mg /3 mL (0.083 %) Inhl nebu [Active]; topiramate 50 mg Oral tab ha1 1 tab 2 times per day [Active]; famotidine 10 mg Oral tab 1 tab once daily [Active]; montelukast 10 mg Oral tab 1 tab once daily [Active]; fluticasone [Active]; - PMHx: 21:55 Asthma; Migraines; ha1 - PSHx: 21:55 Adenoid excision; Ankle; breast augmentation; cerclage; section; ha1 Cholecystectomy; Tonsillectomy; Tummy tuck; - Immunization history:: Adult Immunizations up to date. - Infectious Disease History:: Denies. - Social history:: Smoking status: Patient denies any tobacco usage or history of. Screenin/26 01:[address] [facility] ED Fall Risk Assessment (Adult) History of falling in the last 3 months, jb4 including since admission No falls in past 3 months (0 pts) Confusion or Disorientation No (0 pts) Intoxicated or Sedated No (0 pts) Impaired Gait No (0 pts) Mobility Assist Device Used No (0 pt) Altered Elimination No (0 pt) Score/Fall Risk Level 0 - 2 = Low Risk Oriented to surroundings, Maintained a safe environment. Abuse screen: Denies threats or abuse. Nutritional screening: No deficits noted. Tuberculosis screening: No symptoms or risk factors identified. Assessment: 09/11 22:00 General: Appears in no apparent distress. uncomfortable, Behavior is calm, cooperative, jb4 appropriate for age. Pain: Complains of pain in abdomen Pain does not radiate. Pain currently is 7 out of 10 on a pain scale. Neuro: Level of Consciousness is awake, alert, obeys commands, Oriented to person, place, time, situation. Cardiovascular: Patient's skin is warm and dry. Respiratory: Airway is patent Respiratory effort is even, unlabored, Respiratory pattern is regular, symmetrical. GI: Abdomen is flat, non-distended, Reports lower abdominal pain, diarrhea, nausea, vomiting. : No signs and/or symptoms were reported regarding the genitourinary system. Derm: Skin is intact, Skin is pink, warm \T\ dry. Musculoskeletal: Circulation, motion, and sensation intact. Range of motion: intact in all extremities. 23:00 Reassessment: Patient appears in no apparent distress at this time. Patient and/or jb4 family updated on plan of care and expected duration. Pain level reassessed. Patient is alert, oriented x 3, equal unlabored respirations, skin warm/dry/pink. 09/12 00:00 Reassessment: Patient appears in no apparent distress at this time. Patient and/or jb4 family updated on plan of care and expected duration. Pain level reassessed. Patient is alert, oriented x 3, equal unlabored respirations, skin warm/dry/pink. 00:42 Reassessment: Patient appears in no apparent distress at this time. Patient and/or jb4 family updated on plan of care and expected duration. Pain level reassessed. Patient is alert, oriented x 3, equal unlabored respirations, skin warm/dry/pink. Patient states feeling better. Vital Signs: 09/11 21:55 BP 140 / 84; Pulse 102; Resp 18 S; Temp 98(O); Pulse Ox 96% on R/A; Weight 68.95 kg; ha1 Height 5 ft. 2 in. ; 23:00 BP 121 / 79; Pulse 88; Resp 16; Pulse Ox 96% on R/A; jb4 09/12 00:00 BP 101 / 53; Pulse 82; Resp 16; Pulse Ox 96% on R/A; jb4 00:30 BP 100 / 62; Pulse 75; Resp 16; Pulse Ox 96% on R/A; jb4 09/11 21:55 Body Mass Index 27.80 (68.95 kg, 157.48 cm) 1 ED Course: 09/11 21:45 Patient arrived in ED. ra3 21:48 Mary Lou Woodson PA-C is PHCP. sb4 21:48 Santos Owens MD is Attending Physician. sb4 22:14 Triage completed. ha1 22:20 First set of blood cultures drawn by me. jb4 22:35 Initial lab(s) drawn, by me, sent to lab. Inserted saline lock: 18 gauge in right jb4 forearm, using aseptic technique. Blood collected. 22:35 Second set of blood cultures drawn by me. jb4 22:54 CBC with Diff Sent. jb4 22:54 CMP Sent. jb4 22:54 Lipase Sent. jb4 22:54 Ptt, Activated Sent. jb4 22:54 Protime (+inr) Sent. jb4 22:54 Lactate w/ 2H reflex if indic. Sent. jb4 22:54 Blood Culture Adult (2) Sent. jb4 23:57 CT Abd/Pelvis - IV Contrast Only In Process Unspecified. EDMS 09/12 00:40 Jonny Shearer, RN is Primary Nurse. jb4 01:27 Jorge Martin MD is Referral Physician. sb4 01:47 No provider procedures requiring assistance completed. IV discontinued, intact, jb4 bleeding controlled, No redness/swelling at site. Pressure dressing applied. Administered Medications: 09/11 22:53 Drug: NS 0.9% IV 1000 ml IV at 1 bolus Per protocol; to be given as a bolus over 60 jb4 minutes Route: IV; Rate: 1 bolus; Site: right forearm; 09/12 00:00 Follow up: Response: No adverse reaction; IV Status: Completed infusion; IV Intake: jb4 1000ml 09/11 22:54 Drug: TORadol - Ketorolac IVP 15 mg IVP once Route: IVP; Site: right forearm; jb4 23:30 Follow up: Response: No adverse reaction; Marked relief of symptoms; Pain is decreased jb4 22:54 Drug: Ondansetron IVP 4 mg IVP once; over 2 minutes Route: IVP; Site: right forearm; jb4 23:30 Follow up: Response: No adverse reaction; Marked relief of symptoms jb4 09/12 01:46 Drug: Ciprofloxacin PO 500 mg PO once Route: PO; jb4 01:47 Follow up: Response: Medication administered at discharge. jb4 01:46 Drug: metroNIDAZOLE PO 500 mg PO once Route: PO; jb4 01:47 Follow up: Response: Medication administered at discharge. jb4 Intake: 00:00 IV: 1000ml; Total: 1000ml. jb4 Outcome: 01:27 Discharge ordered by MD. sb4 01:47 Discharged to home ambulatory, jb4 01:47 Condition: stable 01:47 Discharge instructions given to patient, Instructed on discharge instructions, follow up and referral plans. medication usage, Demonstrated understanding of instructions, follow-up care, medications, Prescriptions given X 3, 01:48 Patient left the ED. jb4 Signatures: Dispatcher [employer] EDMS Jonny Shearer RN RN jb4 Tiffanie Payan RN RN ha1 Mary Lou Woodson PA-C PA-C sb4 Ashleigh Gna ra3
--- NOTE | 2024-09-12 01:29 | EDPHYS ---
Physician Documentation [facility] Name: Denis Petit Age: 54 yrs Sex: Female : 1970 Arrival Date: 09/11/2024 Time: 21:43 Bed 27 Private MD: ED Physician Santos Owens HPI: 09/11 22:55 This 54 yrs old Female presents to ER via Ambulatory with complaints of Fever sb4 - x3days, Vomiting. 22:55 patient reports fever, diarrhea, abdominal pain, nausea, and vomiting x 3 days. denies sb4 any blood in her stool or vomit. denies any prior episodes. no known sick contacts. no recent changes in medications. Historical: - Allergies: 21:55 Chocolate; ha1 21:55 Peanut; ha1 21:55 PORK/PORCINE PRODUCT DERIVATIVES; ha1 21:55 Strawberries; ha1 - Home Meds: 21:55 albuterol sulfate 2.5 mg /3 mL (0.083 %) Inhl nebu [Active]; topiramate 50 mg Oral tab ha1 1 tab 2 times per day [Active]; famotidine 10 mg Oral tab 1 tab once daily [Active]; montelukast 10 mg Oral tab 1 tab once daily [Active]; fluticasone [Active]; - PMHx: 21:55 Asthma; Migraines; ha1 - PSHx: 21:55 Adenoid excision; Ankle; breast augmentation; cerclage; section; ha1 Cholecystectomy; Tonsillectomy; Tummy tuck; - Immunization history:: Adult Immunizations up to date. - Infectious Disease History:: Denies. - Social history:: Smoking status: Patient denies any tobacco usage or history of. ROS: 22:55 Respiratory: Negative for shortness of breath, cough, wheezing, and pleuritic chest sb4 pain, 22:55 Constitutional: Positive for fever, 22:55 Abdomen/GI: Positive for abdominal pain, nausea, vomiting, and diarrhea, 22:55 All other systems are negative, Exam: 22:55 Constitutional: This is a well developed, well nourished patient who is awake, alert, sb4 and in no acute distress. Head/Face: Normocephalic, atraumatic. Eyes: Extra-ocular motions intact. Periorbital areas with no swelling, redness, or edema. ENT: Mucous membranes moist. Cardiovascular: Regular rate and rhythm with a normal S1 and S2. Respiratory: No increased work of breathing, no retractions or nasal flaring. Skin: Warm, dry with normal turgor. Normal color with no rashes, no lesions, and no evidence of cellulitis. 22:55 Abdomen/GI: Inspection: abdomen appears normal, Bowel sounds: normal, Palpation: soft, mild abdominal tenderness, in the left upper quadrant and left lower quadrant, Vital Signs: 21:55 BP 140 / 84; Pulse 102; Resp 18 S; Temp 98(O); Pulse Ox 96% on R/A; Weight 68.95 kg; ha1 Height 5 ft. 2 in. ; 23:00 BP 121 / 79; Pulse 88; Resp 16; Pulse Ox 96% on R/A; jb4 09/12 00:00 BP 101 / 53; Pulse 82; Resp 16; Pulse Ox 96% on R/A; jb4 00:30 BP 100 / 62; Pulse 75; Resp 16; Pulse Ox 96% on R/A; jb4 09/11 21:55 Body Mass Index 27.80 (68.95 kg, 157.48 cm) ha1 MDM: 09/11 21:57 Medical Screening Exam initiated sb4 09/12 00:34 Awaiting: CT scan results. sb4 00:35 Differential diagnosis: colitis, diverticulitis, gastroenteritis. sb4 01:27 Data reviewed: vital signs, nurses notes, lab test result(s), radiologic studies, and sb4 as a result, I will discharge patient. 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 09/11 22:05 Order name: CBC with Diff; Complete Time: 23:57 sb4 09/11 22:05 Order name: CMP; Complete Time: 23:11 sb4 09/11 22:05 Order name: Lipase; Complete Time: 23:11 sb4 09/11 22:05 Order name: Blood Culture Adult (2) sb4 09/11 22:05 Order name: Lactate w/ 2H reflex if indic.; Complete Time: 23:18 sb4 09/11 22:05 Order name: Protime (+inr); Complete Time: 23:03 sb4 09/11 22:05 Order name: Ptt, Activated; Complete Time: 23:03 sb4 09/11 23:07 Order name: Manual Differential; Complete Time: 23:57 EDMS 09/11 22:05 Order name: CT Abd/Pelvis - IV Contrast Only sb4 09/11 22:05 Order name: IV Saline Lock; Complete Time: 22:54 sb4 09/11 22:05 Order name: Labs collected and sent; Complete Time: 22:54 sb4 Administered Medications: 09/11 22:53 Drug: NS 0.9% IV 1000 ml IV at 1 bolus Per protocol; to be given as a bolus over 60 jb4 minutes Route: IV; Rate: 1 bolus; Site: right forearm; 09/12 00:00 Follow up: Response: No adverse reaction; IV Status: Completed infusion; IV Intake: jb4 1000ml 09/11 22:54 Drug: TORadol - Ketorolac IVP 15 mg IVP once Route: IVP; Site: right forearm; jb4 23:30 Follow up: Response: No adverse reaction; Marked relief of symptoms; Pain is decreased jb4 22:54 Drug: Ondansetron IVP 4 mg IVP once; over 2 minutes Route: IVP; Site: right forearm; jb4 23:30 Follow up: Response: No adverse reaction; Marked relief of symptoms jb4 09/12 01:46 Drug: Ciprofloxacin PO 500 mg PO once Route: PO; jb4 01:47 Follow up: Response: Medication administered at discharge. jb4 01:46 Drug: metroNIDAZOLE PO 500 mg PO once Route: PO; jb4 01:47 Follow up: Response: Medication administered at discharge. jb4 Disposition: 02:01 Co-signature as Attending Physician, Santos Owens MD I reviewed the patient's care rt provided by the Advanced Practice Provider and agree with the diagnosis and treatment plan. Chart complete. Chart complete. Disposition Summary: 09/12/24 01:27 Discharge Ordered Notes: Location: Home sb4 Problem: new sb4 Symptoms: are unchanged sb4 Condition: Stable sb4 Diagnosis - Left sided colitis sb4 Followup: sb4 - With: Jorge Martin MD - When: 10 - 14 days - Reason: Further diagnostic work-up, Recheck today's complaints, Re-evaluation by your physician Discharge Instructions: - Discharge Summary Sheet sb4 - Colitis sb4 Forms: - Antibiotic Education sb4 - Patient Portal Instructions sb4 - Leadership Thank You Letter sb4 Prescriptions: - Flagyl 500 mg Oral Tablet - take 1 tablet ORAL route every 12 hours for 7 days; 14 tablet; Refills: 0, sb4 Product Selection Permitted - Zofran 4 mg Oral Tablet - take 1 tablet ORAL route every 12 hours As needed; 20 tablet; Refills: 0, sb4 Product Selection Permitted - Cipro 500 mg Oral Tablet - take 1 tablet ORAL route every 12 hours for 7 days; 14 tablet; Refills: 0, sb4 Product Selection Permitted Signatures: Dispatcher [employer] EDJonny Azul, RN RN jb4 Tiffanie Payan RN RN ha1 Mary Lou Woodson, PABoboC PABoboC sb4 Santos Owens MD MD rt Corrections: (The following items were deleted from the chart) 09/11 22:06 22:06 CBC+H.LAB.BRZ ordered. EDMS EDMS 22:06 22:06 COMPREHENSIVE METABOLIC PANEL+C.LAB.BRZ ordered. EDMS EDMS 22:06 22:06 LIPASE+C.LAB.BRZ ordered. EDMS EDMS 22:06 22:06 BLOOD CULTURE*+BA.LAB.BRZ ordered. EDMS EDMS 22:06 22:06 LACTATE+C.LAB.BRZ ordered. EDMS EDMS 22:06 22:06 PROTIME (+INR)+COAG.LAB.BRZ ordered. EDMS EDMS 22:06 22:06 PTT, ACTIVATED+COAG.LAB.BRZ ordered. EDMS EDMS 22:06 22:06 Abdomen Pelvis W Con+CT.RAD.BRZ ordered. EDMS EDMS
--- NOTE | 2024-09-12 01:30 | RAD REPORT ---
EXAM: CT Abdomen and Pelvis With Intravenous Contrast CLINICAL HISTORY: The patient is 54 years old and is Female; diarrhea; Abd pain; Fever TECHNIQUE: Axial computed tomography images of the abdomen and pelvis with intravenous contrast. Sagittal and coronal reformatted images were created and reviewed. This CT exam was performed using one or more of the following dose reduction techniques: automated exposure control, adjustmen t of the mA and/or kV according to patient size, and/or use of iterative reconstruction technique. COMPARISON: No relevant prior studies available. FINDINGS: Lung bases: Unremarkable. No mass. No consolidation. ABDOMEN: Liver: Unremarkable. No mass. Gallbladder and bile ducts: Gallbladder is surgically absent. No ductal dilation. Pancreas: Unremarkable. No mass. No ductal dilation. Spleen: Unremarkable. No splenomegaly. Adrenals: Unremarkable. No mass. Kidneys and ureters: Unremarkable. No solid mass. No hydronephrosis. Stomach and bowel: Unremarkable. No obstruction. No mucosal thickening. PELVIS: Appendix: No findings to suggest acute appendicitis. Bladder: Unremarkable. Reproductive: Unremarkable as visualized. ABDOMEN and PELVIS: Intraperitoneal space: Unremarkable. No free air. No significant fluid collection. Bones/joints: No acute fracture. No dislocation. Soft tissues: Bilateral breast implants. Vasculature: Unremarkable. No abdominal aortic aneurysm. Lymph nodes: Unremarkable. No enlarged lymph nodes. IMPRESSION: No acute finding in the abdomen/pelvis. Electronically signed by: Miles Celis MD 09/12/2024 01:21 AM [facility] 8 Due to temporary technical issues with the [employer] reporting system, reports are being karla d by the in-house radiologist without review as a courtesy to ensure prompt reporting the interpreting radiologist is fully responsible for the content of the report. Transcribed Date/Time: 09/12/2024 1:30 AM
[2024-09-12] MEDS ORDERED: metroNIDAZOLE 500 MG TABLET ONE (01:36)
[2024-09-12] MEDS ORDERED: CIPROFLOXACIN HCL 500 MG TAB ONE (01:36)
[2024-09-12 08:47] VITALS: TEMP 98; O2SAT 96
[2024-09-12 08:59] VITALS: BP 100/62
== END 2024-09-12 01:48 | disposition home or self-care (01) ==
LOC: ER 21:43
DX: K51.50 Left sided colitis without complications (principal); Z98.82 Breast implant status
CPT/HCPCS: 96361; 87040 ×2; 85025; 36415; 85610; 83605; 85730; 83690; 80053; 74177; 96375; 96374; 99284; Q9967; J2405; J7030